=== PATIENT | male | born 1985 | race American Indian/Alaskan Native ===

== ENCOUNTER 2017-04-20 21:55 | Emergency (ER) | payer OTHER ==
[2017-04-21 00:56] LABS: Basophils % (Auto) 0.6 % (0.0-1.8); Eosinophils # (Auto) 0.1 K/mm3 (0.0-0.4); Eosinophils % (Auto) 2.5 % (0.0-4.3); Hematocrit 40.5 % (35.5-45.6); Hemoglobin 13.9 gm/dl (11.8-15.2); Lymphocytes # (Auto) 0.9 K/mm3 (1.2-5.4); Lymphocytes % (Auto) 15.7 % (13.4-35.0); Mean Corpuscular HGB Conc 34 % (32-34); Mean Corpuscular Hemoglobin 30 pg (28-32); Mean Corpuscular Volume 87 fl (84-94); Monocytes # (Auto) 0.5 K/mm3 (0.0-0.8); Monocytes % (Auto) 8.1 % (0.0-7.3); Platelet Count 197 K/mm3 (140-440); Red Blood Count 4.63 M/mm3 (3.65-5.03); Red Cell Distribution Width 12.9 % (13.2-15.2)
[2017-04-21 01:12] LABS: BUN/Creatinine Ratio 9; Blood Urea Nitrogen 9 mg/dL (9-20); Calcium 8.6 mg/dL (8.4-10.2); Hemolysis Index 7
[2017-04-21] MEDS ORDERED: K-DUR PO ONE (07:31)
[2017-04-21 07:45] VITALS: BP 155/81
[2017-04-21] MEDS ORDERED: PERCOCET 5/325 PO ONE (07:46)
[2017-04-21] MEDS ORDERED: KEPPRA 1,000 MG/NS 0.75% 100ML 1,000 MG/100 ML BAG IV ONE (07:46)
--- NOTE | 2017-04-21 07:48 | Emergency Department Report ---
HPI - General Chief Complaint: Seizure Time Seen by Provider: 04/21/17 07:28 - HPI HPI: 31-year-old [place] male presents to the emergency department with complaint of seizures and been going on since last , 6 days ago. He does have a seizure history for which he is usually on Vimpat and aptium, but he ran out about 2 weeks ago. He recently moved here from [facility] and therefore does not have any primary care physician or neurologist. He had one seizure per day starting last except for on Wednesday he says that he had before. He has had a persistent headache since the seizures began. He denies any alcohol, tobacco or illicit drug use or abuse. He denies any vision change, slurred speech, chest pain, fever. He also has a history of hypertension that is usually controlled with meds. No obvious aggravating or alleviating factors. ED Past Medical Hx - Past Medical History Hx Hypertension: Yes (Controlled with meds) Hx Seizures: Yes (Out of Meds) - Surgical History Past Surgical History?: Yes Additional Surgical History: Gallbladder surgery, Rectal ulcer & tear corrective surgery - Social History Smoking Status: Never Smoker Substance Use Type: None - Medications Home Medications: Home Medications Medication Instructions Recorded Confirmed Last Taken Type Eslicarbazepine Acetate [Aptiom] 400 mg PO QDAY #60 tablet 04/21/17 Unknown Rx Lacosamide [Vimpat] 100 mg PO Q12HR #60 tablet 04/21/17 Unknown Rx ED Review of Systems ROS: Stated complaint: SEIZURE Other details as noted in HPI Comment: All other systems reviewed and negative Constitutional: denies: chills, fever Eyes: denies: eye pain, eye discharge, vision change ENT: denies: ear pain, throat pain Respiratory: denies: cough, shortness of breath, wheezing Cardiovascular: denies: chest pain, palpitations Gastrointestinal: denies: abdominal pain, nausea, diarrhea Genitourinary: denies: urgency, dysuria Musculoskeletal: denies: back pain, joint swelling, arthralgia Skin: denies: rash, lesions Neurological: headache, other (seizures) Physical Exam - Physical Exam Vital Signs: Vital Signs 04/20/17 04/21/17 22:37 07:44 Temperature 98.2 F Pulse Rate 86 84 Respiratory 14 16 Rate Blood Pressure 163/91 155/81 [Right] O2 Sat by Pulse 100 95 Oximetry Physical Exam: GENERAL: The patient is well-developed well-nourished. HENT: Normocephalic. Atraumatic. Patient has moist mucous membranes. EYES: Extraocular motions are intact. Pupils equal reactive to light bilaterally. No nystagmus. NECK: Supple. Trachea is midline. CHEST/LUNGS: Clear to auscultation. There is no respiratory distress noted. HEART/CARDIOVASCULAR: Regular. There is no tachycardia. There is no murmur. ABDOMEN: Abdomen is soft, nontender. Patient has normal bowel sounds. There is no abdominal distention. SKIN: Skin is warm and dry. NEURO: The patient is awake, alert, and oriented. The patient is cooperative. The patient has no focal neurologic deficits. The patient has normal speech. Cranial nerves II through XII grossly intact. MUSCULOSKELETAL: There is no tenderness or deformity. There is no limitation range of motion. There is no evidence of acute injury. ED Course Vital Signs 04/20/17 04/21/17 22:37 07:44 Temperature 98.2 F Pulse Rate 86 84 Respiratory 14 16 Rate Blood Pressure 163/91 155/81 [Right] O2 Sat by Pulse 100 95 Oximetry ED Medical Decision Making - Lab Data Result diagrams: 04/21/17 00:20 04/21/17 00:20 - Radiology Data Radiology results: report reviewed CT HEAD WITHOUT CONTRAST: HISTORY: Headache, recurrent seizures. TECHNIQUE: Sequential 2.5mm CT images. COMPARISON: none. FINDINGS: Cerebral Parenchyma: Within normal limits. Cerebellum: Slightly limited by motion artifact and beam hardening artifact. No abnormality is detected. Brainstem: Within normal limits. Ventricles: Normal. Sella: Normal. Extra-axial spaces: Normal. Basal Cisterns: Normal. Intracranial Hemorrhage: None. Midline Shift: None. Calvarium: Normal. Sinuses: 1.3 cm polyp in the anterior right maxillary sinus is partially imaged. The remaining sinuses and mastoid air cells are well-aerated. Mastoid Air Cells: Normal. Visualized Orbits: Normal. IMPRESSION: Cranial CT scan within normal limits. Incidental 1.3 cm right maxillary sinus polyp. Transcribed By: TTR Dictated By: OSVALDO SAAVEDRA JR, MD Electronically Authenticated By: OSVALDO SAAVEDRA JR, MD Signed Date/Time: 04/21/17 0801 - Medical Decision Making This patient came because of recurrent seizures but also it appears to be secondary to medication noncompliance. Apparently the patient had some type of free or cheap antiepileptic medication program through his neurologist in [facility] but does not have that same availability here. Since he's been in the emergency Department there has been no focal, motor or sensory deficits, his cranial nerves have been intact and there has been no further seizure-like activity. The patient has been here for over 12 hours. He was loaded with some Keppra and Vimpat. CT of the head did not show any bleed, shift, mass or any acute process. Labs were mostly unremarkable as well and certainly did not show any etiology of his symptoms. Vital signs stable throughout his course. He appears safe for discharge home at this time. He has been given a refill of his antiepileptic medications and a referral for neurology. He has been encouraged to return to the emergency Department with any worsening of his symptoms any acute distress. - Differential Diagnosis epilepsy, medication noncompliance, hypertensive urgency, hypoglycemia Critical Care Time: No Critical care attestation.: If time is entered above; I have spent that time in minutes in the direct care of this critically ill patient, excluding procedure time. ED Disposition Clinical Impression: Seizures, Noncompliance with medication regimen Hypertension Qualifiers: Hypertension type: essential hypertension Qualified Code(s): I10 - Essential ( primary) hypertension Disposition: DC- TO HOME OR SELFCARE Is pt being admited?: No Condition: Stable Instructions: Epilepsy (ED), Hypertension (ED) Additional Instructions: I have refilled your seizure medications. I have given him use some local primary care clinics and I have also given you a referral for a local neurologist, Dr. Minor. Return to the emergency Department with any worsening of your symptoms or any acute distress. Please make sure to see a neurologist so that they can titrate your medications. Prescriptions: Eslicarbazepine Acetate [Aptiom] 400 mg PO QDAY #60 tablet Lacosamide [Vimpat] 100 mg PO Q12HR #60 tablet Referrals: WARREN MINOR MD [Staff Physician] - 3-5 Days [facility] [Outside] - 3-5 Days [facility] [Outside] - 3-5 Days Forms: Work/School Release Form(ED) Time of Disposition: 10:40
[2017-04-21] MEDS ORDERED: VIMPAT 200 MG in NACL 0.9% 100 ML IV ONE (08:00)
--- NOTE | 2017-04-21 08:07 | Cat Scan Report ---
CT HEAD WITHOUT CONTRAST: HISTORY: Headache, recurrent seizures. TECHNIQUE: Sequential 2.5mm CT images. COMPARISON: none. FINDINGS: Cerebral Parenchyma: Within normal limits. Cerebellum: Slightly limited by motion artifact and beam hardening artifact. No abnormality is detected. Brainstem: Within normal limits. Ventricles: Normal. Sella: Normal. Extra-axial spaces: Normal. Basal Cisterns: Normal. Intracranial Hemorrhage: None. Midline Shift: None. Calvarium: Normal. Sinuses: 1.3 cm polyp in the anterior right maxillary sinus is partially imaged. The remaining sinuses and mastoid air cells are well-aerated. Mastoid Air Cells: Normal. Visualized Orbits: Normal. IMPRESSION: Cranial CT scan within normal limits. Incidental 1.3 cm right maxillary sinus polyp.
== END 2017-04-21 10:48 | disposition home or self-care (01) ==
LOC: ED 21:55
DX: R56.9 Unspecified convulsions (principal); I10 Essential (primary) hypertension
CPT/HCPCS: 36415; 70450; 80048; 82550; 82962; 83735; 84443; 85025; 96365; 96367; 99284; C9254; J1953

== ENCOUNTER 2017-09-01 21:56 | Emergency (ER) | payer OTHER ==
--- NOTE | 2017-09-02 01:17 | XRay Report ---
FINAL REPORT EXAM: XR SHOULDER 2+V LT HISTORY: pain L shoulder s/p GLF TECHNIQUE: AP and lateral views of the left shoulder were submitted. FINDINGS: There is no evidence of fracture or dislocation. The AC joint and glenohumeral joint appear intact. The subacromial space appears normal. The soft tissues are well maintained. IMPRESSION: Within normal limits.
[2017-09-02 02:21] LABS: Hematocrit 41.4 % (35.5-45.6); Hemoglobin 14.1 gm/dl (11.8-15.2); Mean Corpuscular HGB Conc 34 % (32-34); Mean Corpuscular Hemoglobin 30 pg (28-32); Mean Corpuscular Volume 87 fl (84-94); Platelet Count 187 K/mm3 (140-440); Red Blood Count 4.74 M/mm3 (3.65-5.03); Red Cell Distribution Width 13.5 % (13.2-15.2)
[2017-09-02 02:36] LABS: BUN/Creatinine Ratio 11; Blood Urea Nitrogen 10 mg/dL (9-20); Calcium 8.9 mg/dL (8.4-10.2); Hemolysis Index 4
[2017-09-02] MEDS ORDERED: TYLENOL PO ONE (07:54)
--- NOTE | 2017-09-02 07:58 | Emergency Department Report ---
ED Seizure HPI - General Chief Complaint: Seizure Stated Complaint: SEIZURE Time Seen by Provider: 09/02/17 07:54 Source: patient Mode of arrival: Ambulatory Limitations: No Limitations - History of Present Illness Initial Comments: She is a 31-year-old male that presents emergency room with seizure activity 2. Patient has a known seizure history and is noncompliant with medications due to cost. Patient states he has prescriptions but just cannot afford to get them filled. Patient states he had 2 seizures that were witnessed approximately 30 minutes apart. Patient states his first seizure since stopping his medications 5 months ago. Patient complains of a headache at an 8 out of 10 and left shoulder pain at 7 out of 10. Patient states both pains are better with rest. Patient states his shoulder hurts as he fell onto his left side during the seizure. Patient states he can move it but it hurts with range of motion. Patient states that it is worse with movement and better with rest. Patient states he never hit his head. MD Complaint: seizure -: Sudden Description of Episode: tonic-clonic movement Witnessed:: Yes Trauma: No Seizure History: known seizure disorder, history of non-compliance Place: work Possible Precipitating Event: none, other (noncompliance with medication) Associated Symptoms: denies: chest pain, confusion, cough, diaphoresis, fever/ chills, loss of appetite, malaise, rash, shortness of breath, syncope, weakness , tongue injury, shoulder dislocation, other Treatments Prior to Arrival: none - Related Data Previous Rx's Medication Instructions Recorded Last Taken Type Eslicarbazepine Acetate [Aptiom] 400 mg PO QDAY #60 tablet 04/21/17 Unknown Rx Lacosamide [Vimpat] 100 mg PO Q12HR #60 tablet 04/21/17 Unknown Rx HYDROcodone/APAP 5-325 [Kel[place] 1 each PO Q4HR PRN #15 tablet 09/02/17 Unknown Rx 5/325] Allergies Allergy/AdvReac Type Severity Reaction Status Date / Time No Known Allergies Allergy Verified 04/20/17 22:38 ED Review of Systems ROS: Stated complaint: SEIZURE Other details as noted in HPI Constitutional: denies: chills, fever Eyes: denies: eye pain, eye discharge, vision change ENT: denies: ear pain, throat pain Respiratory: denies: cough, shortness of breath, wheezing Cardiovascular: denies: chest pain, palpitations Endocrine: no symptoms reported Gastrointestinal: denies: abdominal pain, nausea, diarrhea Genitourinary: denies: urgency, dysuria Musculoskeletal: denies: back pain, joint swelling, arthralgia Skin: denies: rash, lesions Neurological: headache. denies: weakness, paresthesias Psychiatric: denies: anxiety, depression Hematological/Lymphatic: denies: easy bleeding, easy bruising ED Past Medical Hx - Past Medical History Previous Medical History?: Yes Hx Hypertension: Yes (Controlled with meds) Hx Seizures: Yes (Out of Meds) - Surgical History Past Surgical History?: Yes Additional Surgical History: Gallbladder surgery, Rectal ulcer & tear corrective surgery - Family History Family history: hypertension - Social History Smoking Status: Never Smoker Substance Use Type: None - Medications Home Medications: Home Medications Medication Instructions Recorded Confirmed Last Taken Type Eslicarbazepine Acetate [Aptiom] 400 mg PO QDAY #60 tablet 04/21/17 Unknown Rx Lacosamide [Vimpat] 100 mg PO Q12HR #60 tablet 04/21/17 Unknown Rx HYDROcodone/APAP 5-325 [Kelso 1 each PO Q4HR PRN #15 tablet 09/02/17 Unknown Rx 5/325] ED Physical Exam - General Limitations: No Limitations General appearance: alert, in no apparent distress - Head Head exam: Present: atraumatic, normocephalic - Eye Eye exam: Present: normal appearance, PERRL, EOMI Pupils: Present: normal accommodation - ENT ENT exam: Present: mucous membranes moist - Neck Neck exam: Present: normal inspection - Respiratory Respiratory exam: Present: normal lung sounds bilaterally. Absent: respiratory distress - Cardiovascular Cardiovascular Exam: Present: regular rate, normal rhythm. Absent: systolic murmur, diastolic murmur, rubs, gallop - GI/Abdominal GI/Abdominal exam: Present: soft, normal bowel sounds - Rectal Rectal exam: Present: deferred - Extremities Exam Extremities exam: Present: normal inspection, full ROM, tenderness (left shoulder tenderness to palpation) - Back Exam Back exam: Present: normal inspection, full ROM - Neurological Exam Neurological exam: Present: alert, oriented X3 - Psychiatric Psychiatric exam: Present: normal affect, normal mood - Skin Skin exam: Present: warm, dry, intact, normal color. Absent: rash ED Course Vital Signs 09/02/17 09/02/17 09/02/17 00:14 04:48 06:46 Temperature 98.1 F 98.3 F 97.8 F Pulse Rate 93 H 85 81 Respiratory 18 20 18 Rate Blood Pressure 172/97 167/107 Blood Pressure 170/104 [Left] O2 Sat by Pulse 95 97 97 Oximetry 09/02/17 09/02/17 07:39 10:50 Temperature 97.5 F L Pulse Rate 80 83 Respiratory 15 25 H Rate Blood Pressure Blood Pressure 175/111 158/92 [Left] O2 Sat by Pulse 100 100 Oximetry - Reevaluation(s) Reevaluation #1: All results discussed with patient. Patient is stable for discharge. Patient states ER he has prescriptions for his medications however he has an appointment for next week with his neurologist in order to get those medications changed to something a little bit more affordable. Patient instructed to return to ER if condition worsens. pt given all discharge instructions. 09/02/17 10:09 ED Medical Decision Making - Lab Data Result diagrams: 09/02/17 01:43 09/02/17 01:43 - Radiology Data Radiology results: report reviewed Normal limits shoulder x-ray. CT head negative - Medical Decision Making Patient is a 31-year-old with a known seizure history and noncompliance. Patient encouraged to restart seizure medication and follow-up with neurologist for further evaluation treatment and management of seizure medications. Patient is stable for discharge at this time. - Differential Diagnosis SZ, noncompliance. Headache. Shoulder pain. Shoulder contusion Critical care attestation.: If time is entered above; I have spent that time in minutes in the direct care of this critically ill patient, excluding procedure time. ED Disposition Clinical Impression: Headache, Shoulder pain, Seizure, Non-compliance, Shoulder contusion Disposition: -01 TO HOME OR SELFCARE Is pt being admited?: No Does the pt Need Aspirin: No Condition: Stable Instructions: Epilepsy (ED) Additional Instructions: Patient to follow up with primary care in 3-5 days. Patient to follow-up with neurologist in 2-4 days. Patient to return to ER if condition worsens. Patient to rest. Patient to not drive. Patient to take meds as directed. Patient to restart all seizure medications. Prescriptions: HYDROcodone/APAP 5-325 [Kelso 5/325] 1 each PO Q4HR PRN #15 tablet PRN Reason: Pain Referrals: PRIMARY CARE, [Primary Care Provider] - 3-5 Days Forms: Work/School Release Form Time of Disposition: 10:08
--- NOTE | 2017-09-02 08:37 | Cat Scan Report ---
CT HEAD WITHOUT CONTRAST: HISTORY: Seizure, headache. TECHNIQUE: Sequential 2.5mm CT images. COMPARISON: 04/21/17. FINDINGS: Cerebral Parenchyma: Within normal limits. Cerebellum: Within normal limits. Brainstem: Within normal limits. Ventricles: Normal. Sella: Normal. Extra-axial spaces: Normal. Basal Cisterns: Normal. Intracranial Hemorrhage: None. Midline Shift: None. Calvarium: Normal. Sinuses: 1 cm polyp versus mucus retention cyst in the anterior right maxillary sinus is unchanged. The remaining paranasal sinuses are adequately aerated. Mastoid Air Cells: Normal. Visualized Orbits: Normal. IMPRESSION: Cranial CT scan within normal limits. No change since the previous examination.
[2017-09-02 10:52] VITALS: BP 158/92
== END 2017-09-02 11:24 | disposition home or self-care (01) ==
LOC: ED 21:56
DX: S40.012A Contusion of left shoulder, initial encounter (principal); G40.909 Epilepsy, unspecified, not intractable, without status epilepticus; I10 Essential (primary) hypertension; X58.XXXA Exposure to other specified factors, initial encounter; Y93.89 Activity, other specified; Y92.89 Other specified places as the place of occurrence of the external cause; Y99.8 Other external cause status
CPT/HCPCS: 36415; 70450; 80048; 85027

== ENCOUNTER 2018-07-28 07:54 | Emergency (ER) | payer OTHER ==
[2018-07-28 08:00] VITALS: BP 188/118
[2018-07-28] MEDS ORDERED: ATIVAN IV ONE (08:21)
[2018-07-28] MEDS ORDERED: VIMPAT PO ONE (08:21)
[2018-07-28] MEDS ORDERED: FIORICET PO ONE (08:21)
[2018-07-28 08:30] LABS: Hematocrit 43.8 % (35.5-45.6); Hemoglobin 14.9 gm/dl (11.8-15.2); Mean Corpuscular HGB Conc 34 % (32-34); Mean Corpuscular Volume 87 fl (84-94); Platelet Count 185 K/mm3 (140-440); Red Blood Count 5.05 M/mm3 (3.65-5.03); Red Cell Distribution Width 14.3 % (13.2-15.2)
--- NOTE | 2018-07-28 08:38 | Emergency Department Report ---
HPI - General Chief Complaint: Seizure Time Seen by Provider: 07/28/18 08:08 - HPI HPI: Room 1 The patient is a 32-year-old male presents with a chief complaint of seizures and headache. The patient states she has a history of seizures but has been out of his medication "for a while." The patient states he began having a migraine headache 3 days ago and increased yesterday. Patient says he had a seizure yesterday and seizure this morning. The patient states he fell this morning during his seizure prompting him to come to the ED to be evaluated. Patient states his headache has improved somewhat and gives it a score of 5/10 Location: [facility], see above Duration: [See above] Quality: Headache Severity:5/10 Modifying factors: [see above] Context: [see above] Mode of transportation: [not driving] ED Past Medical Hx - Past Medical History Hx Hypertension: Yes (Controlled with meds) Hx Seizures: Yes (Out of Meds) - Surgical History Past Surgical History?: No Additional Surgical History: Gallbladder surgery, Rectal ulcer & tear corrective surgery - Family History Family history: no significant - Social History Smoking Status: Never Smoker Substance Use Type: None - Medications Home Medications: Home Medications Medication Instructions Recorded Confirmed Last Taken Type HYDROcodone/APAP 5-325 [Galt 1 each PO Q4HR PRN #15 tablet 09/02/17 Unknown Rx 5/325] Butalb/Acetamin/Caff 50-325-40 2 tab PO Q8HR PRN #20 tablet 07/28/18 Unknown Rx [Fioricet] Eslicarbazepine Acetate [Aptiom] 400 mg PO QDAY #60 tablet 07/28/18 Unknown Rx Lacosamide [Vimpat] 100 mg PO Q12HR #60 tablet 07/28/18 Unknown Rx ED Review of Systems ROS: Stated complaint: SEIZURE/HEADACHE Other details as noted in HPI Constitutional: no symptoms reported Eyes: denies: eye pain ENT: denies: throat pain Respiratory: no symptoms reported Cardiovascular: denies: chest pain Endocrine: no symptoms reported Gastrointestinal: denies: abdominal pain Genitourinary: denies: dysuria Musculoskeletal: denies: back pain Neurological: headache Physical Exam - Physical Exam Vital Signs: Vital Signs 07/28/18 07:59 Temperature 97.9 F Pulse Rate 100 H Respiratory 18 Rate Blood Pressure 188/118 O2 Sat by Pulse 98 Oximetry Physical Exam: GENERAL: The patient is well-developed well-nourished male sitting on stretcher not appearing to be in acute distress. [] HEENT: Normocephalic. Atraumatic. Extraocular motions are intact. Patient has moist mucous membranes. NECK: Supple. Trachea midline CHEST/LUNGS: Clear to auscultation. There is no respiratory distress noted. HEART/CARDIOVASCULAR: Regular. There is no tachycardia. There is no gallop rub or murmur. ABDOMEN: Abdomen is soft, nontender. Patient has normal bowel sounds. There is no abdominal distention. SKIN: There is no rash. There is no edema. There is no diaphoresis. NEURO: The patient is awake, alert, and oriented. The patient is cooperative. The patient has no focal neurologic deficits. The patient has normal speech. Cranial nerves II through XII grossly intact MUSCULOSKELETAL: There is no evidence of acute injury. ED Course Vital Signs 07/28/18 07:59 Temperature 97.9 F Pulse Rate 100 H Respiratory 18 Rate Blood Pressure 188/118 O2 Sat by Pulse 98 Oximetry ED Medical Decision Making - Lab Data Result diagrams: 07/28/18 08:16 07/28/18 08:16 Laboratory Tests 07/28/18 07/28/18 08:16 08:16 WBC 5.3 RBC 5.05 H Hgb 14.9 Hct 43.8 MCV 87 MCH 30 MCHC 34 RDW 14.3 Plt Count 185 Sodium 137 Potassium 4.0 Chloride 100.5 Carbon Dioxide 23 Anion Gap 18 BUN 12 Creatinine 1.0 Estimated GFR > 60 BUN/Creatinine Ratio 12 Glucose 129 H Calcium 8.8 Magnesium 2.10 - Radiology Data Radiology results: report reviewed (CT head), image reviewed (CT head) [facility] [address] [place] [address] Cat Scan Report Signed Patient: TAMIR FALK MR# : [id number] : 1985 Acct:[id number] Age/Sex: 32 / M ADM Date: 07/28/18 Loc: ED Attending Dr: Ordering Physician: MICHELET RYAN MD Date of Service: 07/28/18 Procedure(s): CT head/brain wo con Accession Number(s): [id number] cc: MICHELET RYAN MD CT HEAD WITHOUT CONTRAST: HISTORY: Headache, seizure. TECHNIQUE: Sequential 2.5mm CT images. COMPARISON: 09/02/17. FINDINGS: Cerebral Parenchyma: Within normal limits. Cerebellum: Within normal limits. Brainstem: Within normal limits. Ventricles: Normal. Sella: Normal. Extra-axial spaces: Normal. Basal Cisterns: Normal. Intracranial Hemorrhage: None. Midline Shift: None. Calvarium: Normal. Sinuses: There are a few small mucus retention cysts in the inferior maxillary sinuses. The remaining sinuses are clear. Mastoid Air Cells: Normal. Visualized Orbits: Normal. IMPRESSION: Cranial CT scan within normal limits. Transcribed By: TTR Dictated By: OSVALDO SAAVEDRA JR, MD Electronically Authenticated By: OSVALDO SAAVEDRA JR, MD Signed Date/Time: 07/28/18853 DD/ 3 TD/TT: 07/28/18853 - Differential Diagnosis seizures, migraines, ICH, cerebral contusion Critical care attestation.: If time is entered above; I have spent that time in minutes in the direct care of this critically ill patient, excluding procedure time. ED Disposition Clinical Impression: Seizure Disposition: DC-01 TO HOME OR SELFCARE Is pt being admited?: No Does the pt Need Aspirin: No Condition: Stable Instructions: Epilepsy (ED) Additional Instructions: Return to the emergency department immediately should you develop worsening symptoms, fever, inability to tolerate food or liquid or any other concerns. Prescriptions: Eslicarbazepine Acetate [Aptiom] 400 mg PO QDAY #60 tablet Butalb/Acetamin/Caff 50-325-40 [Fioricet] 2 tab PO Q8HR PRN #20 tablet PRN Reason: Headache Lacosamide [Vimpat] 100 mg PO Q12HR #60 tablet Referrals: PRIMARY MD CHITRA [Primary Care Provider] - 3-5 Days WARREN MINOR MD [Staff Physician] - 3-5 Days Time of Disposition: 09:11
[2018-07-28 08:49] LABS: Blood Urea Nitrogen 12 mg/dL (9-20)
[2018-07-28 08:50] LABS: BUN/Creatinine Ratio 12; Calcium 8.8 mg/dL (8.4-10.2); Hemolysis Index 25
--- NOTE | 2018-07-28 08:59 | Cat Scan Report ---
CT HEAD WITHOUT CONTRAST: HISTORY: Headache, seizure. TECHNIQUE: Sequential 2.5mm CT images. COMPARISON: 09/02/17. FINDINGS: Cerebral Parenchyma: Within normal limits. Cerebellum: Within normal limits. Brainstem: Within normal limits. Ventricles: Normal. Sella: Normal. Extra-axial spaces: Normal. Basal Cisterns: Normal. Intracranial Hemorrhage: None. Midline Shift: None. Calvarium: Normal. Sinuses: There are a few small mucus retention cysts in the inferior maxillary sinuses. The remaining sinuses are clear. Mastoid Air Cells: Normal. Visualized Orbits: Normal. IMPRESSION: Cranial CT scan within normal limits.
== END 2018-07-28 09:37 | disposition home or self-care (01) ==
LOC: ED 07:54
DX: R56.9 Unspecified convulsions (principal); G43.909 Migraine, unspecified, not intractable, without status migrainosus; I10 Essential (primary) hypertension
CPT/HCPCS: 36415; 70450; 80048; 83735; 85027; 96374; 99284; J2060

== ENCOUNTER 2021-02-24 09:10 | Emergency (ER) | payer OTHER ==
[2021-02-24 09:22] VITALS: BP 175/104
[2021-02-24] MEDS ORDERED: MORPHINE 4 MG/1 ML INJ IV ONE ×2 (10:48→13:55)
[2021-02-24] MEDS ORDERED: ONDANSETRON 4 MG/2 ML INJ IV ONE ×2 (10:48→13:55)
--- NOTE | 2021-02-24 11:45 | Emergency Department Report ---
ED Abdominal Pain HPI - General Chief Complaint: Abdominal Pain Stated Complaint: PAIN IN MY LOWER R SIDE Time Seen by Provider: 02/24/21 10:47 Source: patient Mode of arrival: Ambulatory Limitations: No Limitations - History of Present Illness Initial Comments: The patient was evaluated in the emergency department for symptoms described in the history of present illness. He/she was evaluated in the context of the global COVID-19 pandemic, which necessitated consideration that the patient might be at risk for infection with the virus that causes COVID-19. Institutional protocols and algorithms that pertain to the evaluation of patients at risk for COVID-19 are in a state of rapid change based on information released by regulatory bodies including the CDC and federal and state organizations. These policies and algorithms were followed during the patient's care in the emergency department. Please note that these policies, procedures and recommendations changed on a rapid basis. 35-year-old morbid obese -Citizen Of [place] male with a past medical history of epilepsy and hypertension presents to the emergency room for right lower quadrant abdominal pain. Patient states this started on and has progressively gotten worse. Patient states he had a physical done on when his doctor checked his abdomen it was tender to his right side. Patient states since then he has had some nausea vomiting pain with movement low-grade temperature with a T-max of 100 at home. Patient states he is compliant with his medications. He states that the pain is 8 out of 10. Has no known drug allergies. Currently takes Depakote hydrochlorothiazide amlodipine and clonidine. MD Complaint: abdominal pain Onset/Timin -: days(s) Location: RLQ Radiation: none Migration to: no migration Severity scale (0 -10): 8 Quality: stabbing, sharp Consistency: constant Improves With: nothing Worsens With: movement Associated Symptoms: nausea, vomiting, fever - Related Data Previous Rx's Medication Instructions Recorded Last Taken Type HYDROcodone/APAP 5-325 [Kinde 1 each PO Q4HR PRN #15 tablet 09/02/17 Unknown Rx 5/325] Butalb/Acetamin/Caff 50-325-40 2 tab PO Q8HR PRN #20 tablet 07/28/18 Unknown Rx [Fioricet] Eslicarbazepine Acetate [Aptiom] 400 mg PO QDAY #60 tablet 07/28/18 Unknown Rx Lacosamide [Vimpat] 100 mg PO Q12HR #60 tablet 07/28/18 Unknown Rx Allergies Allergy/AdvReac Type Severity Reaction Status Date / Time No Known Allergies Allergy Verified 02/24/21 09:22 ED Review of Systems ROS: Stated complaint: PAIN IN MY LOWER R SIDE Other details as noted in HPI Comment: All other systems reviewed and negative ED Past Medical Hx - Past Medical History Hx Hypertension: Yes (Controlled with meds) Hx Seizures: Yes (Out of Meds) - Surgical History Additional Surgical History: Gallbladder surgery, Rectal ulcer & tear corrective surgery - Social History Smoking Status: Never Smoker Substance Use Type: None - Medications Home Medications: Home Medications Medication Instructions Recorded Confirmed Last Taken Type HYDROcodone/APAP 5-325 [Kinde 1 each PO Q4HR PRN #15 tablet 09/02/17 Unknown Rx 5/325] Butalb/Acetamin/Caff 50-325-40 2 tab PO Q8HR PRN #20 tablet 07/28/18 Unknown Rx [Fioricet] Eslicarbazepine Acetate [Aptiom] 400 mg PO QDAY #60 tablet 07/28/18 Unknown Rx Lacosamide [Vimpat] 100 mg PO Q12HR #60 tablet 07/28/18 Unknown Rx ED Physical Exam - General Limitations: No Limitations General appearance: alert, in no apparent distress - Head Head exam: Present: atraumatic, normocephalic - Eye Eye exam: Present: normal appearance - ENT ENT exam: Present: normal external ear exam - Neck Neck exam: Present: normal inspection, full ROM. Absent: tenderness - Respiratory Respiratory exam: Present: normal lung sounds bilaterally - Cardiovascular Cardiovascular Exam: Present: tachycardia - GI/Abdominal GI/Abdominal exam: Present: soft, tenderness, guarding. Absent: distended - Extremities Exam Extremities exam: Present: normal inspection, full ROM - Back Exam Back exam: Present: normal inspection - Neurological Exam Neurological exam: Present: alert, oriented X3, normal gait - Psychiatric Psychiatric exam: Present: normal affect, normal mood - Skin Skin exam: Present: warm, dry, intact, normal color. Absent: rash ED Course Vital Signs 02/24/21 09:20 Temperature 98.9 F Pulse Rate 94 H Respiratory 18 Rate Blood Pressure 175/104 [Left] O2 Sat by Pulse 100 Oximetry ED Medical Decision Making - Lab Data Result diagrams: 02/24/21 11:20 02/24/21 11:20 - Radiology Data Radiology results: report reviewed [facility] [address] [place] [address] Cat Scan Report Signed Patient: TAMIR FALK MR# : [id number] : 1985 Acct:[id number] Age/Sex: 35 / M ADM Date: 02/24/21 Loc: ED Attending Dr: Ordering Physician: VERONICA LOPEZ Date of Service: 02/24/21 Procedure(s): CT abdomen pelvis w con Accession Number(s): [id number] cc: VERONICA LOPEZ CT abdomen pelvis w con INDICATION: Right lower quadrant tenderness and pain OMNI 300 100 ML. TECHNIQUE: All CT scans at this location are performed using CT dose reduction for ALARA by means of automated exposure control. COMPARISON: None available. FINDINGS: The included lung bases are clear. The gallbladder surgically absent. The liver is enlarged and demonstrates diffuse hepatic steatosis. The adrenal glands, kidneys, pancreas, and spleen are all normal. The appendix is normal. There are no acute bowel abnormalities. Visualized bones demonstrate no aggressive appearing bone lesions or acute abnormalities. There is no abdominal or pelvic adenopathy. IMPRESSION: 1. No acute findings. 2. Hepatomegaly with hepatic steatosis. Signer Name: Cam Rojas MD Signed: 02/24/2021 1:44 PM Workstation Name: [id number] Transcribed By: BAYLEE Dictated By: Cam Rojas MD Electronically Authenticated By: Cam Rojas MD Signed Date/Time: 02/24/21 134 DD/ 134 TD/TT: - Medical Decision Making 35-year-old morbid obese -Citizen Of [place] male with a past medical history of epilepsy and hypertension presents to the emergency room for right lower quadrant abdominal pain. Patient states this started on and has progressively gotten worse. Patient states he had a physical done on when his doctor checked his abdomen it was tender to his right side. Patient states since then he has had some nausea vomiting pain with movement low-grade temperature with a T-max of 100 at home. Patient states he is compliant with his medications. He states that the pain is 8 out of 10. Has no known drug allergies. Currently takes Depakote hydrochlorothiazide amlodipine and clonidine. CBC CMP CT abdomen pelvis INT normal saline Zofran and morphine Critical care attestation.: If time is entered above; I have spent that time in minutes in the direct care of this critically ill patient, excluding procedure time. ED Disposition Clinical Impression: Acute abdominal pain in right lower quadrant Disposition: HOME / SELF CARE / HOMELESS Is pt being admited?: No Does the pt Need Aspirin: No Condition: Stable Instructions: Abdominal Pain, Adult, [id number], Pain Without a Known Cause Additional Instructions: Labs are stable and nonactionable. CT scan shows no acute abnormalities. I recommend to follow back up with your primary care provider. You can take Tylenol or ibuprofen as needed for pain. Referrals: PRIMARY CARE,MD [Primary Care Provider] - 3-5 Days [facility] [Provider Group] - 3-5 Days Forms: Work/School Release Form(ED) Time of Disposition: 13:56
[2021-02-24] MEDS: SODIUM CHLORIDE 0.9% 1000 ML 1,000 ML IV ONE ×2 (11:47→14:00)
[2021-02-24 12:07] LABS: Basophils % (Auto) 0.4 % (0.0-1.8); Eosinophils # (Auto) 0.1 K/mm3 (0.0-0.4); Hematocrit 42.9 % (35.5-45.6); Hemoglobin 13.9 gm/dl (11.8-15.2); Lymphocytes # (Auto) 0.7 K/mm3 (1.2-5.4); Lymphocytes % (Auto) 13.4 % (13.4-35.0); Mean Corpuscular HGB Conc 32 % (32-34); Mean Corpuscular Volume 87 fl (84-94); Monocytes # (Auto) 0.4 K/mm3 (0.0-0.8); Monocytes % (Auto) 8.6 % (0.0-7.3); Platelet Count 205 K/mm3 (140-440); Red Blood Count 4.91 M/mm3 (3.65-5.03); Red Cell Distribution Width 13.8 % (13.2-15.2)
[2021-02-24 12:31] LABS: Alanine Aminotransferase 88 units/L (7-56); Albumin 4.7 g/dL (3.9-5); BUN/Creatinine Ratio 16; Blood Urea Nitrogen 14 mg/dL (9-20); Calcium 9.3 mg/dL (8.4-10.2); Hemolysis Index 13
--- NOTE | 2021-02-24 13:49 | Cat Scan Report ---
CT abdomen pelvis w con INDICATION: Right lower quadrant tenderness and pain OMNI 300 100 ML. TECHNIQUE: All CT scans at this location are performed using CT dose reduction for ALARA by means of automated e xposure control. COMPARISON: None available. FINDINGS: The included lung bases are clear. The gallbladder surgically absent. The liver is enlarged and demonstrates diffuse hepatic steatosis. The adrenal glands, kidneys, pancreas, and spleen are all normal. The appendix is normal. There are no acute bowel abnormalities. Visualized bones demonstrate no aggressive appearing bone lesions or acute abnormalities. There is no abdominal or pelvic adenopathy. IMPRESSION: 1. No acute findings. 2. Hepatomegaly with hepatic steatosis. Signer Name: Cam Rojas MD Signed: 02/24/2021 1:44 PM Workstation Name: [id number]
== END 2021-02-24 14:43 | disposition home or self-care (01) ==
LOC: ED 09:10
DX: R10.31 Right lower quadrant pain (principal); R56.9 Unspecified convulsions; I10 Essential (primary) hypertension; Z98.890 Other specified postprocedural states; Z79.899 Other long term (current) drug therapy
CPT/HCPCS: 36415; 74177; 80053; 83690; 85025; 96374; 96375; 96376; 99284; J2270; J2405; J7030; Q9967; Q0162

== ENCOUNTER 2021-02-26 09:44 | Emergency (ER) | payer OTHER ==
[2021-02-26] MEDS ORDERED: fentaNYL 100 MCG/2 ML INJ IV ONE (11:21)
[2021-02-26] MEDS ORDERED: ONDANSETRON 4 MG/2 ML INJ IV ONE (11:21)
[2021-02-26] MEDS ORDERED: KETOROLAC 30 MG/1 ML INJ IV ONE (11:22)
--- NOTE | 2021-02-26 11:27 | Emergency Department Report ---
HPI - General Chief Complaint: Abdominal Pain Time Seen by Provider: 02/26/21 10:46 - HPI HPI: Room 5 The patient is a 35-year-old male present with chief complaint of right-sided abdominal pain. Patient states he developed right-sided pain 5 days ago and states the pain was intermittent. Patient is to nausea and vomiting as well as a fever. Patient states he had a CT scan performed for his primary physician 6 days ago and was told he had a kidney stone. The patient came to this emergency department 02/24/[address] scan performed which was essentially negative except for hepatic steatosis. Patient currently gets his pain score of 9/10. The patient states he is not driving ED Past Medical Hx - Past Medical History Hx Hypertension: Yes (Controlled with meds) Hx Seizures: Yes (Out of Meds) - Surgical History Additional Surgical History: Gallbladder surgery, Rectal ulcer & tear corrective surgery - Family History Family history: no significant - Social History Smoking Status: Never Smoker Substance Use Type: None (Denies illicit drug use), Alcohol (Rarely) - Medications Home Medications: Home Medications Medication Instructions Recorded Confirmed Last Taken Type HYDROcodone/APAP 5-325 [Paxinos 1 each PO Q4HR PRN #15 tablet 09/02/17 Unknown Rx 5/325] Butalb/Acetamin/Caff 50-325-40 2 tab PO Q8HR PRN #20 tablet 07/28/18 Unknown Rx [Fioricet] Eslicarbazepine Acetate [Aptiom] 400 mg PO QDAY #60 tablet 07/28/18 Unknown Rx Lacosamide [Vimpat] 100 mg PO Q12HR #60 tablet 07/28/18 Unknown Rx Famotidine [Pepcid] 20 mg PO BID #20 tablet 02/26/21 Unknown Rx HYDROcodone/APAP 5-325 [Paxinos 1 - 2 each PO Q6HR PRN #10 tablet 02/26/21 Unknown Rx 5/325] Promethazine [Phenergan] 25 mg PO Q6HR PRN #20 tab 02/26/21 Unknown Rx Promethazine [Phenergan] 25 mg UT Q6HR PRN #5 supp.rect 02/26/21 Unknown Rx ED Review of Systems ROS: Stated complaint: RLQ ABD PAIN Other details as noted in HPI Constitutional: fever Eyes: denies: eye pain ENT: denies: throat pain Respiratory: no symptoms reported Cardiovascular: denies: chest pain Endocrine: no symptoms reported Gastrointestinal: abdominal pain, nausea, vomiting Musculoskeletal: back pain Neurological: denies: headache Physical Exam - Physical Exam Vital Signs: Vital Signs 02/26/21 09:50 Temperature 98.2 F Pulse Rate 88 Respiratory 18 Rate Blood Pressure 202/110 [Right] O2 Sat by Pulse 97 Oximetry Physical Exam: GENERAL: The patient is well-developed well-nourished male lying on stretcher not appearing to be in acute distress. [] HEENT: Normocephalic. Atraumatic. Extraocular motions are intact. Patient has moist mucous membranes. NECK: Supple. Trachea midline CHEST/LUNGS: Clear to auscultation. There is no respiratory distress noted. HEART/CARDIOVASCULAR: Regular. There is no tachycardia. There is no gallop rub or murmur. ABDOMEN: Abdomen is soft, with mild discomfort to palpation in the right upper quadrant and right lower quadrant. Patient has normal bowel sounds. There is no abdominal distention. SKIN: There is no rash. There is no edema. There is no diaphoresis. NEURO: The patient is awake, alert, and oriented. The patient is cooperative. The patient has no focal neurologic deficits. The patient has normal speech. GCS 15 MUSCULOSKELETAL: There is bilateral CVA tenderness. There is no evidence of acute injury. ED Course Vital Signs 02/26/21 09:50 Temperature 98.2 F Pulse Rate 88 Respiratory 18 Rate Blood Pressure 202/110 [Right] O2 Sat by Pulse 97 Oximetry ED Medical Decision Making - Lab Data Result diagrams: 02/26/21 11:39 02/26/21 11:39 Laboratory Tests 02/26/21 02/26/21 02/26/21 11:39 11:39 13:47 WBC 5.3 RBC 4.64 Hgb 13.3 Hct 40.1 MCV 87 MCH 29 MCHC 33 RDW 13.6 Plt Count 184 Lymph % (Auto) 9.3 L Lassen % (Auto) 7.4 H Eos % (Auto) 1.6 Baso % (Auto) 1.6 Lymph # (Auto) 0.5 L Lassen # (Auto) 0.4 Eos # (Auto) 0.1 Baso # (Auto) 0.1 Seg Neutrophils % 80.1 H Seg Neutrophils # 4.3 Sodium 137 Potassium 4.0 Chloride 98.5 Carbon Dioxide 30 Anion Gap 13 BUN 8 L Creatinine 0.7 L Estimated GFR > 60 BUN/Creatinine Ratio 11 Glucose 152 H Calcium 8.7 Urine Color Yellow Urine Turbidity Clear Urine pH 5.0 Ur Specific Kila 1.016 Urine Protein 100 mg/dl Urine Glucose (UA) Neg Urine Ketones Neg Urine Blood Neg Urine Nitrite Neg Urine Bilirubin Neg Urine Urobilinogen 2.0 Ur Leukocyte Esterase Neg Urine WBC (Auto) 1.0 Urine RBC (Auto) 1.0 Urine Mucus Few - Differential Diagnosis Renal colic, pyelonephritis, muscle strain Critical care attestation.: If time is entered above; I have spent that time in minutes in the direct care of this critically ill patient, excluding procedure time. ED Disposition Clinical Impression: Acute abdominal pain Disposition: HOME / SELF CARE / HOMELESS Is pt being admited?: No Does the pt Need Aspirin: No Condition: Stable Additional Instructions: Return to the emergency department should you develop worsening symptoms, inability to tolerate food or liquids, high fever or any other concerns Prescriptions: HYDROcodone/APAP 5-325 [Paxinos 5/325] 1 - 2 each PO Q6HR PRN #10 tablet PRN Reason: Pain Famotidine [Pepcid] 20 mg PO BID #20 tablet Promethazine [Phenergan] 25 mg PO Q6HR PRN #20 tab PRN Reason: Nausea Promethazine [Phenergan] 25 mg UT Q6HR PRN #5 supp.rect PRN Reason: Vomiting Referrals: PRIMARY CAREMD [Primary Care Provider] - 3-5 Days LITO QURESHI MD [Staff Physician] - 3-5 Days (Dr. Qureshi is a resource management specialist. Please follow-up with him for further evaluation) Time of Disposition: 14:28
[2021-02-26 11:50] LABS: Basophils # (Auto) 0.1 K/mm3 (0.0-0.1); Basophils % (Auto) 1.6 % (0.0-1.8); Eosinophils # (Auto) 0.1 K/mm3 (0.0-0.4); Eosinophils % (Auto) 1.6 % (0.0-4.3); Hematocrit 40.1 % (35.5-45.6); Hemoglobin 13.3 gm/dl (11.8-15.2); Lymphocytes # (Auto) 0.5 K/mm3 (1.2-5.4); Lymphocytes % (Auto) 9.3 % (13.4-35.0); Mean Corpuscular HGB Conc 33 % (32-34); Mean Corpuscular Volume 87 fl (84-94); Monocytes # (Auto) 0.4 K/mm3 (0.0-0.8); Monocytes % (Auto) 7.4 % (0.0-7.3); Platelet Count 184 K/mm3 (140-440); Red Blood Count 4.64 M/mm3 (3.65-5.03); Red Cell Distribution Width 13.6 % (13.2-15.2)
[2021-02-26 12:09] LABS: Blood Urea Nitrogen 8 mg/dL (9-20); Calcium 8.7 mg/dL (8.4-10.2); Hemolysis Index 4
[2021-02-26 12:26] LABS: BUN/Creatinine Ratio 11
[2021-02-26 14:19] LABS: Bilirubin,Urine NEG (Negative); Blood,Urine NEG (Negative); Color,Urine Yellow (Yellow); Mucus,Urine FEW /HPF
[2021-02-26 15:34] VITALS: BP 141/88
--- NOTE | 2021-02-27 10:32 | Electrocardiograph Report ---
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
== END 2021-02-26 15:34 | disposition home or self-care (01) ==
LOC: ED 09:44
DX: R10.9 Unspecified abdominal pain (principal); I10 Essential (primary) hypertension; R56.9 Unspecified convulsions
CPT/HCPCS: 36415; 80048; 81001; 85025; 93005; 96374; 96375; 99284; J1885; J2405; J3010

== ENCOUNTER 2021-04-03 18:57 | Inpatient (IN) | payer SELFPAY ==
[2021-04-03] MEDS ORDERED: NITROGLYCERIN 0.4 MG TAB SUBL SL ONE (19:26)
[2021-04-03] MEDS ORDERED: dilTIAZem 25 MG/5 ML INJ IV ONE ×3 (19:26→20:54)
[2021-04-03] MEDS ORDERED: SODIUM CHLORIDE 0.9% 500 ML 500 ML IV ONE (19:26)
[2021-04-03] MEDS ORDERED: MORPHINE 4 MG/1 ML INJ IV ONE (19:27)
[2021-04-03] MEDS ORDERED: ONDANSETRON 4 MG/2 ML INJ IV ONE (19:27)
--- NOTE | 2021-04-03 19:28 | Emergency Department Report ---
<JUAN ANGEL - Last Filed: 04/03/21 20:56> ED General Adult HPI - General Chief complaint: Chest Pain Stated complaint: CHEST PAIN Time Seen by Provider: 04/03/21 19:10 Source: patient, RN notes reviewed, old records reviewed Mode of arrival: Ambulatory Limitations: No Limitations - History of Present Illness Initial comments: The patient was evaluated in the emergency department for symptoms described in the history of present illness. He/she was evaluated in the context of the global COVID-19 pandemic, which necessitated consideration that the patient might be at risk for infection with the virus that causes COVID-19. Institutional protocols and algorithms that pertain to the evaluation of patients at risk for COVID-19 are in a state of rapid change based on information released by regulatory bodies including the CDC and federal and state organizations. These policies and algorithms were followed during the patient's care in the emergency department. Please note that these policies, procedures and recommendations changed on a rapid basis. Past medical history of hypertension, obstructive sleep apnea, obesity/body mass index of 44.6 The patient is a 35-year-old gentleman, who presents to the ER today with complaint of left-sided chest pain that radiates down to his left upper extremity. He denies vomiting and diaphoresis. He has shortness of breath. He denies travel, surgery, immobilization, DVT/PE risk factors. He denies testicular pain or urinary symptoms. He also endorses simultaneous right lower quadrant pain. However, he reports that this is similar to prior episodes of right lower quadrant pain. -: Gradual, hour(s) Location: chest, abdomen Radiation: extremity Quality: aching Consistency: constant Improves with: rest Worsens with: movement - Related Data Previous Rx's Medication Instructions Recorded Last Taken Type HYDROcodone/APAP 5-325 [Shade 1 each PO Q4HR PRN #15 tablet 09/02/17 Unknown Rx 5/325] Butalb/Acetamin/Caff 50-325-40 2 tab PO Q8HR PRN #20 tablet 07/28/18 Unknown Rx [Fioricet] Eslicarbazepine Acetate [Aptiom] 400 mg PO QDAY #60 tablet 07/28/18 Unknown Rx Lacosamide [Vimpat] 100 mg PO Q12HR #60 tablet 07/28/18 Unknown Rx Famotidine [Pepcid] 20 mg PO BID #20 tablet 02/26/21 Unknown Rx HYDROcodone/APAP 5-325 [Shade 1 - 2 each PO Q6HR PRN #10 tablet 02/26/21 Unknown Rx 5/325] Promethazine [Phenergan] 25 mg PO Q6HR PRN #20 tab 02/26/21 Unknown Rx Promethazine [Phenergan] 25 mg LA Q6HR PRN #5 supp.rect 02/26/21 Unknown Rx Allergies Allergy/AdvReac Type Severity Reaction Status Date / Time No Known Allergies Allergy Verified 04/03/21 20:58 ED Review of Systems Constitutional: denies: fever Eyes: denies: vision change ENT: denies: epistaxis Respiratory: shortness of breath. denies: cough Cardiovascular: chest pain, palpitations Gastrointestinal: abdominal pain. denies: vomiting, melena, hematochezia Genitourinary: denies: dysuria, testicular pain Musculoskeletal: back pain Neurological: paresthesias Psychiatric: anxiety Hematological/Lymphatic: denies: easy bleeding ED Past Medical Hx - Past Medical History Hx Hypertension: Yes (Controlled with meds) Hx Seizures: Yes (Out of Meds) - Surgical History Additional Surgical History: Gallbladder surgery, Rectal ulcer & tear corrective surgery - Social History Smoking Status: Never Smoker Substance Use Type: None (Denies illicit drug use), Alcohol (Rarely) - Medications Home Medications: Home Medications Medication Instructions Recorded Confirmed Last Taken Type HYDROcodone/APAP 5-325 [Shade 1 each PO Q4HR PRN #15 tablet 09/02/17 Unknown Rx 5/325] Butalb/Acetamin/Caff 50-325-40 2 tab PO Q8HR PRN #20 tablet 07/28/18 Unknown Rx [Fioricet] Eslicarbazepine Acetate [Aptiom] 400 mg PO QDAY #60 tablet 07/28/18 Unknown Rx Lacosamide [Vimpat] 100 mg PO Q12HR #60 tablet 07/28/18 Unknown Rx Famotidine [Pepcid] 20 mg PO BID #20 tablet 02/26/21 Unknown Rx HYDROcodone/APAP 5-325 [Shade 1 - 2 each PO Q6HR PRN #10 tablet 02/26/21 Unknown Rx 5/325] Promethazine [Phenergan] 25 mg PO Q6HR PRN #20 tab 02/26/21 Unknown Rx Promethazine [Phenergan] 25 mg LA Q6HR PRN #5 supp.rect 02/26/21 Unknown Rx ED Physical Exam - General Limitations: No Limitations General appearance: alert, anxious, in distress, obese - Head Head exam: Present: atraumatic, normocephalic - Eye Eye exam: Present: normal appearance, EOMI. Absent: nystagmus - ENT ENT exam: Present: normal exam, normal orophraynx, mucous membranes moist, normal external ear exam - Neck Neck exam: Present: normal inspection, full ROM. Absent: tenderness, meningismus - Respiratory Respiratory exam: Present: normal lung sounds bilaterally. Absent: respiratory distress, wheezes, rales, rhonchi, stridor, decreased breath sounds - Cardiovascular Cardiovascular Exam: Present: tachycardia, irregular rhythm, normal heart sounds. Absent: systolic murmur, diastolic murmur, rubs, gallop - GI/Abdominal GI/Abdominal exam: Present: soft, tenderness, other (There is right lower quadrant tenderness to deep palpation). Absent: distended, guarding, rebound, rigid, pulsatile mass - Rectal Rectal exam: Present: deferred - Extremities Exam Extremities exam: Present: normal inspection, full ROM, other (2+ pulses noted in the bilateral upper and lower extremities. There is no palpable cord. negative Homans sign. Muscular compartments are soft. The pelvis is stable.). Absent: pedal edema, calf tenderness - Back Exam Back exam: Present: normal inspection, full ROM. Absent: tenderness, CVA tenderness (R), CVA tenderness (L), paraspinal tenderness, vertebral tenderness - Neurological Exam Neurological exam: Present: alert, oriented X3, normal gait, other (No facial droop. Tongue midline. Extraocular movements intact bilaterally. Facial se nsation intact to light touch in V1, V2, V3 distribution bilaterally. 5 and a 5 strength in 4 extremities. Sensation intact to light touch in 4 extremities.). Absent: motor sensory deficit - Psychiatric Psychiatric exam: Present: normal affect, normal mood - Skin Skin exam: Present: warm, dry, intact, normal color. Absent: rash ED Course - Reevaluation(s) Reevaluation #1: 04/03/21 20:33 Differential diagnosis, including but not limited to: A. fib with RVR, acute coronary syndrome, electrolyte derangement, thyroid derangement, pneumonia, aortic disease, renal colic, appendicitis Assessment and plan: 35-year-old gentleman, who denies DVT/PE risk factors, who is low risk by Wells criteria for pulmonary embolism, with no contraindications to systemic anticoagulation by history, who presents with concerning chest pain, and A. fib with RVR. Placed patient on color television console monitor. Treat his pain aggressively, and start diltiazem IV. Given complaint of chest pain, back pain, right lower quadrant abdominal pain, obtain CT angiogram chest to exclude aortic disease. Obtain CT scan abdomen pelvis given history of right lower quadrant pain. If no surgical findings noted on CT scans, start patient on systemic anticoagulation, and admit the patient to the hospital for rate control, and further cardiac risk stratification. Discussed this plan of care with the patient. He is agreeable to the plan of care. Reassess after completion of the aforementioned diagnostics. Care will be transferred to the oncoming ER physician to follow-up on CT scan, laboratory studies, administer anticoagulation if necessary, and admit patient to the medical service. 04/03/21 20:54 Patient still tachycardic in spite of 15 mg of diltiazem. I personally adm inistered 25 mg of diltiazem push, patient still remaining tachycardic, therefore, diltiazem drip is ordered - Consultations Consultation #1: 04/03/21 20:56 Discussed history, physical, EKG findings and clinical impression with critical care physician on-call, Dr. Can[place]oke She is in agreement with the plan of care, and placement into the intensive care unit ED Medical Decision Making - Lab Data Result diagrams: 04/03/21 19:57 04/03/21 19:57 Vital Signs 04/03/21 04/03/21 04/03/21 19:00 20:17 20:18 Temperature 98.3 F Pulse Rate 84 80 Respiratory 22 14 Rate Blood Pressure 148/91 121/71 O2 Sat by Pulse 97 Oximetry Lab Results 04/03/21 04/03/21 04/03/21 Range/Units 19:57 19:57 19:57 WBC 5.4 (4.5-11.0) K/mm3 RBC 5.70 H (3.65-5.03) M/mm3 Hgb 15.6 H (11.8-15.2) gm/dl Hct 49.2 H (35.5-45.6) % MCV 86 (84-94) fl MCH 27 L (28-32) pg MCHC 32 (32-34) % RDW 14.1 (13.2-15.2) % Plt Count 281 (140-440) K/mm3 Lymph % (Auto) 17.4 (13.4-35.0) % [place] % (Auto) 10.1 H (0.0-7.3) % Eos % (Auto) 2.5 (0.0-4.3) % Baso % (Auto) 0.5 (0.0-1.8) % Lymph # (Auto) 0.9 L (1.2-5.4) K/mm3 [place] # (Auto) 0.5 (0.0-0.8) K/mm3 Eos # (Auto) 0.1 (0.0-0.4) K/mm3 Baso # (Auto) 0.0 (0.0-0.1) K/mm3 Seg Neutrophils % 69.5 (40.0-70.0) % Seg Neutrophils # 3.8 (1.8-7.7) K/mm3 PT 12.9 (12.2-14.9) Sec. INR 0.88 (0.87-1.13) APTT 27.7 (24.2-36.6) Sec. Estimated GFR > 60 ml/min BUN/Creatinine Ratio 11 % Albumin/Globulin Ratio 1.3 % Urine Color (Yellow) Urine Turbidity (Clear) Urine pH (5.0-7.0) Ur Specific [place] (1.003-1.030) Urine Protein (Negative) mg/dL Urine Glucose (UA) (Negative) mg/dL Urine Ketones (Negative) mg/dL Urine Blood (Negative) Urine Nitrite (Negative) Urine Bilirubin (Negative) Urine Urobilinogen (<2.0) mg/dL Ur Leukocyte Esterase (Negative) Urine RBC (Auto) (0.0-6.0) /HPF 04/03/21 Range/Units Unknown WBC (4.5-11.0) K/mm3 RBC (3.65-5.03) M/mm3 Hgb (11.8-15.2) gm/dl Hct (35.5-45.6) % MCV (84-94) fl MCH (28-32) pg MCHC (32-34) % RDW (13.2-15.2) % Plt Count (140-440) K/mm3 Lymph % (Auto) (13.4-35.0) % [place] % (Auto) (0.0-7.3) % Eos % (Auto) (0.0-4.3) % Baso % (Auto) (0.0-1.8) % Lymph # (Auto) (1.2-5.4) K/mm3 [place] # (Auto) (0.0-0.8) K/mm3 Eos # (Auto) (0.0-0.4) K/mm3 Baso # (Auto) (0.0-0.1) K/mm3 Seg Neutrophils % (40.0-70.0) % Seg Neutrophils # (1.8-7.7) K/mm3 PT (12.2-14.9) Sec. INR (0.87-1.13) APTT (24.2-36.6) Sec. Estimated GFR ml/min BUN/Creatinine Ratio % Albumin/Globulin Ratio % Urine Color Straw (Yellow) Urine Turbidity Clear (Clear) Urine pH 6.0 (5.0-7.0) Ur Specific [place] 1.008 (1.003-1.030) Urine Protein 100 mg/dl (Negative) mg/dL Urine Glucose (UA) Neg (Negative) mg/dL Urine Ketones Neg (Negative) mg/dL Urine Blood Neg (Negative) Urine Nitrite Neg (Negative) Urine Bilirubin Neg (Negative) Urine Urobilinogen < 2.0 (<2.0) mg/dL Ur Leukocyte Esterase Neg (Negative) Urine RBC (Auto) < 1.0 (0.0-6.0) /HPF - EKG Data -: EKG Interpreted by Ok EKG shows normal: sinus rhythm - EKG Data 04/03/21 20:31 The EKG is interpreted at 19: 04 A. fib, rate 174 bpm. Normal axis, QTC 494 ms. Left ventricular hypertrophy/high left ventricular voltage. Abnormal EKG. Not a STEMI. - Radiology Data Radiology results: pending, report reviewed, image reviewed CHEST 2 VIEWS INDICATION / CLINICAL INFORMATION: Chest Pain. COMPARISON: None available. FINDINGS: SUPPORT DEVICES: None. HEART / MEDIASTINUM: No significant abnormality. LUNGS / PLEURA: No significant pulmonary abnormality. No significant pleural effusion. No pneumothorax. ADDITIONAL FINDINGS: No significant additional findings. IMPRESSION: 1. No acute abnormality of the chest. Signer Name: Delvis Maher MD Signed: 04/03/2021 6:57 PM Workstation Name: [id number] Critical Care Time: Yes Critical care time in (mins) excluding proc time.: 35 ED Disposition Clinical Impression: Atrial fibrillation with RVR, Acute chest pain, Acute abdominal pain in right lower quadrant, Body mass index 40.0-44.9, adult Disposition: 09 ADMITTED INPATIENT Condition: Serious Instructions: Chest Pain (ED) Heart Score - HEART Score History: Moderately suspicious EKG: Non-specific Age: < 45 Risk factors: > 3 risk factors or hx of atherosclerotic disease Troponin: < normal limit HEART Score: 4 - EKG Read Time Time EKG Completed: 19:04 EKG Read Time: 19:04 - Critical Actions Critical Actions: 4-6 pts:12-16.6% risk of adverse cardiac event. Should be admitted <GELY STILES - Last Filed: 04/04/21 00:06> ED Review of Systems ROS: Stated complaint: CHEST PAIN Other details as noted in HPI ED Course Vital Signs 04/03/21 04/03/21 04/03/21 19:00 20:17 20:18 Temperature 98.3 F Pulse Rate 84 80 Respiratory 22 14 Rate Blood Pressure 148/91 121/71 O2 Sat by Pulse 97 Oximetry 04/03/21 04/03/21 04/03/21 20:50 20:53 23:25 Temperature Pulse Rate 185 H 160 H 145 H Respiratory Rate Blood Pressure 114/76 113/67 98/60 O2 Sat by Pulse Oximetry - Consultations Consultation #2: 04/04/21 00:04 I spoke to the power line installer on-call, Dr. Patel, and they will consult on the patient. The patient was started on a Cardizem drip but is starting to have some borderline hypotension. After speaking with cardiology the patient will be switched to an amiodarone drip without bolus. ED Medical Decision Making - Lab Data Result diagrams: 04/03/21 19:57 04/03/21 19:57 - Radiology Data CTA CHEST, ABDOMEN, AND PELVIS WITH IV CONTRAST INDICATION: Acute R.L.Q. abdominal pain, chest pain, back pain. TECHNIQUE: Axial CT images were obtained through the chest, abdomen, and pelvis before and after injection of 100 cc Omnipaque 350 IV contrast. 3 plane MIP reconstructions were produced. All CT scans at this location are performed using CT dose reduction for ALARA by means of automated exposure control. COMPARISON: 2 views of the chest performed today. FINDINGS: Heart: No significant abnormality. Thoracic Aorta: No significant abnormality. Great Vessels: No significant abnormality. Coronary Arteries: No significant abnormality. Pulmonary Arteries: No significant abnormality. Additional Chest Findings: No significant abnormality. Abdominal Aorta: No significant abnormality. Renal arteries: No significant abnormality. Celiac artery: No significant abnormality. Superior Mesenteric Artery: No significant abnormality. Inferior mesenteric artery: No significant abnormality. Right Iliac Arteries: No significant abnormality.. Left Iliac Arteries: No significant abnormality.. Femoral Arteries: No significant abnormality as visualized. Additional Abdominopelvic Findings: There is hepatic steatosis without other significant abnormalities. The appendix is unremarkable. Skeletal Structures: No significant abnormality. IMPRESSION: 1. No significant abnormality of the chest, abdomen or pelvis. - Medical Decision Making This patient was signed out to me in order to follow-up on the results of the CT angiography of the chest and abdomen/pelvis, as well as get the patient admitted for this new onset atrial fibrillation with RVR. The patient had not yet been started on the Cardizem drip. I went to reevaluate the patient and he had a heart rate in between 140 to 160 bpm. Otherwise he is awake, alert, oriented, calm and appropriate. The CT scans did not show any acute process or etiology of the patient's chest or abdominal pain. Once the Cardizem drip was started, the patient began having some borderline hypotension. I spoke with cardiology on-call and they have been consulted. The patient will be switched to an amiodarone drip without bolus. Patient has been accepted for admission by the hospitalist, Dr. Carlos. Critical care attestation.: If time is entered above; I have spent that time in minutes in the direct care of this critically ill patient, excluding procedure time. ED Disposition Is pt being admited?: Yes Time of Disposition: 00:06
--- NOTE | 2021-04-03 20:02 | XRay Report ---
CHEST 2 VIEWS INDICATION / CLINICAL INFORMATION: Chest Pain. COMPARISON: None available. FINDINGS: SUPPORT DEVICES: None. HEART / MEDIASTINUM: No significant abnormality. LUNGS / PLEURA: No significant pulmonary abnormality. No significant pleural effusion. No pneumothora x. ADDITIONAL FINDINGS: No significant additional findings. IMPRESSION: 1. No acute abnormality of the chest. Signer Name: Delvis Maher MD Signed: 04/03/2021 7:57 PM Workstation Name: [id number]
[2021-04-03 20:37] LABS: Basophils % (Auto) 0.5 % (0.0-1.8); Eosinophils # (Auto) 0.1 K/mm3 (0.0-0.4); Eosinophils % (Auto) 2.5 % (0.0-4.3); Hematocrit 49.2 % (35.5-45.6); Hemoglobin 15.6 gm/dl (11.8-15.2); Lymphocytes # (Auto) 0.9 K/mm3 (1.2-5.4); Lymphocytes % (Auto) 17.4 % (13.4-35.0); Mean Corpuscular HGB Conc 32 % (32-34); Mean Corpuscular Volume 86 fl (84-94); Monocytes # (Auto) 0.5 K/mm3 (0.0-0.8); Monocytes % (Auto) 10.1 % (0.0-7.3); Platelet Count 281 K/mm3 (140-440); Red Cell Distribution Width 14.1 % (13.2-15.2)
[2021-04-03 20:39] LABS: Bilirubin,Urine NEG (Negative); Blood,Urine NEG (Negative); Color,Urine Straw (Yellow); Urobilinogen,Urine < 2.0 mg/dL (<2.0)
[2021-04-03 20:50] LABS: RBC,Urine < 1.0 /HPF (0.0-6.0); WBC,Urine < 1.0 /HPF (0.0-6.0)
[2021-04-03 20:50] LABS: INR 0.88 (0.87-1.13)
[2021-04-03 20:51] LABS: Partial Thromboplastin Time 27.7 Sec. (24.2-36.6)
[2021-04-03 20:52] LABS: Alanine Aminotransferase 71 units/L (7-56); Albumin 4.6 g/dL (3.9-5); BUN/Creatinine Ratio 11; Blood Urea Nitrogen 10 mg/dL (9-20); Calcium 9.4 mg/dL (8.4-10.2); Hemolysis Index 16
[2021-04-03] MEDS ORDERED: dilTIAZem/D5W 100 MG/100 ML BAG IV SCH (21:00)
--- NOTE | 2021-04-03 22:20 | Cat Scan Report ---
CTA CHEST, ABDOMEN, AND PELVIS WITH IV CONTRAST INDICATION: Acute R.L.Q. abdominal pain, chest pain, back pain. TECHNIQUE: Axial CT images were obtained through the chest, abdomen, and pelvis before and after injection of 10 0 cc Omnipaque 350 IV contrast. 3 plane MIP reconstructions were produced. All CT scans at this [facility] are performed using CT dose reduction for ALARA by means of automated exposure control. COMPARISON: 2 views of the chest performed today. FINDINGS: Heart: No significant abnormality. Thoracic Aorta: No significant abnormality. Great Vessels: No significant abnormality. Coronary Arteries: No significant abnormality. Pulmonary Arteries: No significant abnormality. Additional Chest Findings: No significant abnormality. Abdominal Aorta: No significant abnormality. Renal arteries: No significant abnormality. Celiac artery: No significant abnormality. Superior Mesenteric Artery: No significant abnormality. Inferior mesenteric artery: No significant abnormality. Right Iliac Arteries: No significant abnormality.. Left Iliac Arteries: No significant abnormality.. Femoral Arteries: No significant abnormality as visualized. Additional Abdominopelvic Findings: There is hepatic steatosis without other significant abnormalitie s. The appendix is unremarkable. Skeletal Structures: No significant abnormality. IMPRESSION: 1. No significant abnormality of the chest, abdomen or pelvis. Signer Name: Delvis Maher MD Signed: 04/03/2021 10:16 PM Workstation Name: [id number]
--- NOTE | 2021-04-03 22:20 | Cat Scan Report ---
CTA CHEST, ABDOMEN, AND PELVIS WITH IV CONTRAST INDICATION: Acute R.L.Q. abdominal pain, chest pain, back pain. TECHNIQUE: Axial CT images were obtained through the chest, abdomen, and pelvis before and after injection of 10 0 cc Omnipaque 350 IV contrast. 3 plane MIP reconstructions were produced. All CT scans at this [facility] are performed using CT dose reduction for ALARA by means of automated exposure control. COMPARISON: 2 views of the chest performed today. FINDINGS: Heart: No significant abnormality. Thoracic Aorta: No significant abnormality. Great Vessels: No significant abnormality. Coronary Arteries: No significant abnormality. Pulmonary Arteries: No significant abnormality. Additional Chest Findings: No significant abnormality. Abdominal Aorta: No significant abnormality. Renal arteries: No significant abnormality. Celiac artery: No significant abnormality. Superior Mesenteric Artery: No significant abnormality. Inferior mesenteric artery: No significant abnormality. Right Iliac Arteries: No significant abnormality.. Left Iliac Arteries: No significant abnormality.. Femoral Arteries: No significant abnormality as visualized. Additional Abdominopelvic Findings: There is hepatic steatosis without other significant abnormalitie s. The appendix is unremarkable. Skeletal Structures: No significant abnormality. IMPRESSION: 1. No significant abnormality of the chest, abdomen or pelvis. Signer Name: Delvis Maher MD Signed: 04/03/2021 10:16 PM Workstation Name: [id number]
[2021-04-03] MEDS ORDERED: SODIUM CHLORIDE 0.9% 1000 ML 1,000 ML IV ONE (23:36)
[2021-04-04] MEDS: AMIODARONE 360 MG in DEXTROSE 5% IN WATER 192.8 ML IV SCH ×2 (00:25→06:51)
[2021-04-04] MEDS ORDERED: MORPHINE 2 MG/1 ML INJ IV PRN (01:23)
[2021-04-04] MEDS ORDERED: traMADol 50 MG TAB PO PRN (01:23)
[2021-04-04] MEDS ORDERED: MAGNESIUM HYDROXIDE (MOM) ORAL LIQD UDC PO PRN (01:23)
[2021-04-04] MEDS ORDERED: MORPHINE 4 MG/1 ML INJ IV PRN ×2 (01:23)
[2021-04-04] MEDS ORDERED: ACETAMINOPHEN 325 MG TAB PO PRN ×2 (01:23)
[2021-04-04 04:02] LABS: BUN/Creatinine Ratio 10; Blood Urea Nitrogen 11 mg/dL (9-20); Calcium 8.6 mg/dL (8.4-10.2); Hemolysis Index 4
[2021-04-04] MEDS ORDERED: METOPROLOL TARTRATE 5 MG/5 ML INJ IV ONE (05:36)
--- NOTE | 2021-04-04 07:54 | History and Physical Report ---
History of Present Illness Date of examination: 04/04/21 Date of admission: 04/04/21 01:23 Chief complaint: Chest pain History of present illness: 35-year-old -[place] male with known history of hypertension presents to the emergency room today complaining of chest pain. Pain is said to be left- sided and radiated towards the left upper extremity. No no relieving or exacerbating factor. He had associated shortness of breath. He denies any headache or dizziness or diaphoresis. Patient denies any fever or chills, no nausea or vomiting and no diarrhea. Upon arrival in the emergency room patient was found to be in a A. fib with RVR. Work-up in the emergency room today, CT angiogram of the chest shows no acute abnormalities. CT abdomen and pelvis was also unremarkable. Past History Past Medical History: hypertension, seizures, other (Obstructive sleep apnea, morbid obesity) Past Surgical History: cholecystectomy, Other (Rectal ulcer anterior with corrective surgery) Social history: no significant social history Family history: no significant family history Medications and Allergies Allergies Allergy/AdvReac Type Severity Reaction Status Date / Time No Known Allergies Allergy Verified 04/03/21 20:58 Home Medications Medication Instructions Recorded Confirmed Last Taken Type HYDROcodone/APAP 5-325 [[place] 1 each PO Q4HR PRN #15 tablet 09/02/17 Unknown Rx 5/325] Butalb/Acetamin/Caff 50-325-40 2 tab PO Q8HR PRN #20 tablet 07/28/18 Unknown Rx [Fioricet] Eslicarbazepine Acetate [Aptiom] 400 mg PO QDAY #60 tablet 07/28/18 Unknown Rx Lacosamide [Vimpat] 100 mg PO Q12HR #60 tablet 07/28/18 Unknown Rx Famotidine [Pepcid] 20 mg PO BID #20 tablet 02/26/21 Unknown Rx HYDROcodone/APAP 5-325 [[place] 1 - 2 each PO Q6HR PRN #10 tablet 02/26/21 Unknown Rx 5/325] Promethazine [Phenergan] 25 mg PO Q6HR PRN #20 tab 02/26/21 Unknown Rx Promethazine [Phenergan] 25 mg [place] Q6HR PRN #5 supp.rect 02/26/21 Unknown Rx Active Meds: Active Medications Acetaminophen (Acetaminophen 325 Mg Tab) 650 mg PO Q6H PRN PRN Reason: Pain MILD(1-3)/Fever >100.5/[place] Aspirin (Aspirin Ec 325 Mg Tab) 325 mg PO QDAY [facility] Amiodarone HCl 360 mg/ (Dextrose) 200 mls @ 33.333 mls/hr IV DIRECT [facility]; Protocol Last Admin: 04/04/21 06:51 Dose: 0.5 mg/min, 16.66 mls/hr Magnesium Hydroxide (Magnesium Hydroxide (Mom) Oral Liqd Udc) 30 ml PO Q4H PRN PRN Reason: Constipation Morphine Sulfate (Morphine 2 Mg/1 Ml Inj) 2 mg IV Q4H PRN PRN Reason: Pain, Moderate (4-6) Morphine Sulfate (Morphine 4 Mg/1 Ml Inj) 4 mg IV Q4H PRN PRN Reason: Pain , Severe (7-10) Morphine Sulfate (Morphine 4 Mg/1 Ml Inj) 2 mg IV Q5MIN PRN PRN Reason: Chest Pain unrelieved by NTG Sodium Chloride (Sodium Chloride 0.9% 10 Ml Flush Syringe) 10 ml IV BID [facility] Stop: 04/11/21 09:59 Sodium Chloride (Sodium Chloride 0.9% 10 Ml Flush Syringe) 10 ml IV PRN PRN PRN Reason: LINE FLUSH Sodium Chloride (Sodium Chloride 0.9% 10 Ml Flush Syringe) 10 ml IV PRN PRN PRN Reason: LINE FLUSH Tramadol HCl (Tramadol 50 Mg Tab) 50 mg PO Q6H PRN PRN Reason: Pain, Moderate (4-6) Review of Systems Constitutional: no fever, no chills Ears, nose, mouth and throat: no nasal congestion, no sore throat Cardiovascular: chest pain, no orthopnea, no palpitations Respiratory: no cough, no shortness of breath Gastrointestinal: no abdominal pain, no nausea, no vomiting, no diarrhea Genitourinary Male: no dysuria, no hematuria, no flank pain, no nocturia Musculoskeletal: no neck pain, no low back pain Integumentary: no rash, no pruritis Neurological: no headaches, no confusion Psychiatric: no anxiety, no depression Endocrine: no polyphagia, no polydipsia, no polyuria, no nocturia Exam - Constitutional Vitals: Temp Pulse Resp BP Pulse Ox 98.3 F 89 20 119/62 94 04/03/21 19:00 04/04/21 07:00 04/04/21 07:00 04/04/21 07:00 04/04/21 07:00 General appearance: Present: no acute distress, well-nourished, obese - EENT Eyes: Present: PERRL, EOM intact. Absent: scleral icterus ENT: hearing intact, clear oral mucosa, dentition normal - Neck Neck: Present: supple, normal ROM - Respiratory Respiratory effort: normal Respiratory: bilateral: CTA - Cardiovascular Rhythm: irregularly irregular Heart Sounds: Present: S1 & S2. Absent: gallop, systolic murmur, diastolic murmur, rub, click - Extremities Extremities: no ischemia, pulses intact, pulses symmetrical, No edema, normal temperature, normal color, Full ROM Peripheral Pulses: within normal limits - Abdominal General gastrointestinal: Present: soft, non-tender, non-distended, normal bowel sounds. Absent: mass - Integumentary Integumentary: Present: clear, warm, dry. Absent: rash - Musculoskeletal Musculoskeletal: strength equal bilaterally - Psychiatric Psychiatric: appropriate mood/affect, intact judgment & insight, memory intact, cooperative - Neurologic Neurologic: CNII-XII intact, no focal deficits, moves all extremities HEART Score - HEART Score EKG: Non-specific Age: < 45 Risk factors: > 3 risk factors or hx of atherosclerotic disease Troponin: Troponin T 0.018 ng/mL (0.00-0.029) 04/03/21 19:57 Troponin: < normal limit - Critical Actions Critical Actions: 4-6 pts:12-16.6% risk of adverse cardiac event. Should be admitted Results - Labs CBC & Chem 7: 04/03/21 19:57 04/04/21 02:52 Labs: Abnormal lab results 04/03/21 04/03/21 04/03/21 Range/Units 19:57 19:57 19:57 RBC 5.70 H (3.65-5.03) M/mm3 Hgb 15.6 H (11.8-15.2) gm/dl Hct 49.2 H (35.5-45.6) % MCH 27 L (28-32) pg [place] % (Auto) 10.1 H (0.0-7.3) % Lymph # (Auto) 0.9 L (1.2-5.4) K/mm3 Chloride 97.8 L (98-107) mmol/L Glucose 155 H (75-100) mg/dL ALT 71 H (7-56) units/L Total Creatine Kinase 281 H (55-170) units/L 04/04/21 Range/Units 02:52 RBC (3.65-5.03) M/mm3 Hgb (11.8-15.2) gm/dl Hct (35.5-45.6) % MCH (28-32) pg [place] % (Auto) (0.0-7.3) % Lymph # (Auto) (1.2-5.4) K/mm3 Chloride (98-107) mmol/L Glucose 176 H (75-100) mg/dL ALT (7-56) units/L Total Creatine Kinase (55-170) units/L Assessment and Plan - Patient Problems (1) Acute chest pain Current Visit: Yes Status: Acute Plan to address problem: Possibly secondary to the atrial fibrillation with RVR. However we will check serial cardiac enzymes. Will await further evaluation by cardiology. We will schedule patient for echocardiogram. (2) Atrial fibrillation with RVR Current Visit: Yes Status: Acute Plan to address problem: New onset. Patient started on amiodarone drip. Consult placed to cardiology for evaluation. (3) Body mass index 40.0-44.9, adult Current Visit: Yes Status: Acute Plan to address problem: Lifestyle modification encouraged. Dietary consult requested. (4) Hypertension Current Visit: Yes Status: Acute Plan to address problem: We will resume routine home medications and monitor vital signs closely. (5) DVT prophylaxis Current Visit: Yes Status: Acute Plan to address problem: Patient placed on anticoagulation with heparin. (6) Full code status Current Visit: Yes Status: Acute Plan to address problem: Patient is full code.
--- NOTE | 2021-04-04 12:55 | Consultation ---
History of Present Illness Consult date: 04/04/21 Requesting physician: LUANA PRECIADO Reason for consult: obstructive sleep apnea, other (Afib with RVR, morbid obesity) History of present illness: 35-year-old -[place] male with known history of hypertension presents to the emergency room today complaining of chest pain. Pain is said to be left- sided and radiated towards the left upper extremity. No no relieving or exacerbating factor. He had associated shortness of breath. He denies any headache or dizziness or diaphoresis. Patient denies any fever or chills, no nausea or vomiting and no diarrhea. Upon arrival in the emergency room patient was found to be in a A. fib with RVR. Work-up in the emergency room today, CT angiogram of the chest shows no acute abnormalities. CT abdomen and pelvis was also unremarkable. A critical care consult was placed to facilitate admission for management of critical drips. Patient seen and examined. Vitals, albs, medications, chart reviewed. he is resting peacefully in bed. Currently on an amiodarone infusion and he remains in Afib but with a controlled ventricular response. he does have a history of sleep apnea and states he is compliant with CPAP. He denies any chest pain, no shortness of breath. No fevers, no chills, no nausea or vomiting. Review of Systems Constitutional: denies: fever Eyes: denies: vision change ENT: denies: epistaxis Respiratory: shortness of breath. denies: cough Cardiovascular: chest pain, palpitations Gastrointestinal: abdominal pain. denies: vomiting, melena, hematochezia Genitourinary: denies: dysuria, testicular pain Musculoskeletal: back pain Neurological: paresthesias Psychiatric: anxiety Hematological/Lymphatic: denies: easy bleeding Past Medical History Hx Hypertension: Yes (Controlled with meds) Hx Seizures: Yes (Out of Meds) Surgical History Additional Surgical History: Gallbladder surgery, Rectal ulcer & tear corrective surgery Social History Smoking Status: Never Smoker Substance Use Type: None (Denies illicit drug use), Alcohol (Rarely) Past History Past Medical History: hypertension, seizures, other (Obstructive sleep apnea, morbid obesity) Past Surgical History: cholecystectomy, Other (Rectal ulcer anterior with corrective surgery) Social history: no significant social history Family history: no significant family history Medications and Allergies Allergies Allergy/AdvReac Type Severity Reaction Status Date / Time No Known Allergies Allergy Verified 04/03/21 20:58 Home Medications Medication Instructions Recorded Confirmed Last Taken Type Lacosamide [Vimpat] 100 mg PO Q12HR #60 tablet 07/28/18 Unknown Rx Famotidine [Pepcid] 20 mg PO BID #20 tablet 02/26/21 Unknown Rx Promethazine [Phenergan] 25 mg PO Q6HR PRN #20 tab 02/26/21 Unknown Rx Promethazine [Phenergan] 25 mg [place] Q6HR PRN #5 supp.rect 02/26/21 Unknown Rx Eslicarbazepine Acetate [Aptiom] 400 mg PO QWEEK 04/05/21 04/05/21 03/31/21 07:00 History amLODIPine [Norvasc] 5 mg PO DAILY 04/05/21 04/05/21 04/04/21 07:00 History cloNIDine [Catapres] 0.1 PO DAILY 04/05/21 04/04/21 07:00 History hydroCHLOROthiazide [HCTZ] 25 mg PO QDAY 04/05/21 04/05/21 04/04/21 07:00 History Active Meds: Active Medications Acetaminophen (Acetaminophen 325 Mg Tab) 650 mg PO Q6H PRN PRN Reason: Pain MILD(1-3)/Fever >100.5/[place] Last Admin: 04/04/21 11:00 Dose: 650 mg Apixaban (Apixaban 5 Mg Tab) 5 mg PO Q12HR [facility]; Protocol Diltiazem HCl (Diltiazem 30 Mg Tab) 30 mg PO Q8HR [facility] Magnesium Hydroxide (Magnesium Hydroxide (Mom) Oral Liqd Udc) 30 ml PO Q4H PRN PRN Reason: Constipation Morphine Sulfate (Morphine 2 Mg/1 Ml Inj) 2 mg IV Q4H PRN PRN Reason: Pain, Moderate (4-6) Morphine Sulfate (Morphine 4 Mg/1 Ml Inj) 4 mg IV Q4H PRN PRN Reason: Pain , Severe (7-10) Morphine Sulfate (Morphine 4 Mg/1 Ml Inj) 2 mg IV Q5MIN PRN PRN Reason: Chest Pain unrelieved by NTG Sodium Chloride (Sodium Chloride 0.9% 10 Ml Flush Syringe) 10 ml IV BID [facility] Stop: 04/11/21 09:59 Last Admin: 04/04/21 10:53 Dose: 10 ml Sodium Chloride (Sodium Chloride 0.9% 10 Ml Flush Syringe) 10 ml IV PRN PRN PRN Reason: LINE FLUSH Sodium Chloride (Sodium Chloride 0.9% 10 Ml Flush Syringe) 10 ml IV PRN PRN PRN Reason: LINE FLUSH Tramadol HCl (Tramadol 50 Mg Tab) 50 mg PO Q6H PRN PRN Reason: Pain, Moderate (4-6) Physical Examination Vital signs: Vital Signs Temp Pulse Resp BP Pulse Ox 98.3 F 84 22 148/91 97 04/03/21 19:00 04/03/21 19:00 04/03/21 19:00 04/03/21 19:00 04/03/21 19:00 General appearance: no acute distress, other (obese, short neck and large neck circumference) Eyes: non-icteric ENT: oropharynx moist Neck: supple, no lymphadenopathy Effort: normal Ascultation: Bilateral: clear, diminished breath sounds Cardiovascular: irregular rhythm, other (S1,S2) Gastrointestinal: normoactive bowel sounds, soft, non-tender, non-distended Integumentary: normal Extremities: no cyanosis, pulses normal normal mental status, non-focal exam, pupils equal and round, CN II-XII normal, motor strength normal and mood appropriate, affect normal Results - Laboratory Findings CBC and BMP: 04/04/21 17:40 04/04/21 17:40 PT/INR, D-dimer PT 12.9 Sec. (12.2-14.9) 04/03/21 19:57 INR 0.88 (0.87-1.13) 04/03/21 19:57 Abnormal lab findings: Abnormal Labs 04/03/21 04/03/21 04/03/21 19:57 19:57 19:57 RBC 5.70 H Hgb 15.6 H Hct 49.2 H MCH 27 L [place] % (Auto) 10.1 H Lymph # (Auto) 0.9 L Chloride 97.8 L Glucose 155 H ALT 71 H Total Creatine Kinase 281 H 04/04/21 02:52 RBC Hgb Hct MCH [place] % (Auto) Lymph # (Auto) Chloride Glucose 176 H ALT Total Creatine Kinase - Diagnostic Findings Chest x-ray: image reviewed (No acute pulmoanry infiltrates) CT scan - chest: report reviewed (No pulmoanry embolism) Assessment and Plan Chest pain Atrial fibrillation with RVR Morbid obesity BMI 44.6 Sleep apnea Hypertension -Serial EKGs and troponins -Continue with amiodarone, can switch to oral therapies -In the setting of atrial fibrillation, needs risk assessment and a decision on anticoagulation discussed prior to discharge planning -Therapeutic Enoxaparin fro Atrial fibrillation -Continue with CPAP at night- compliance encouraged -Weight loss, life style modification -Chronic home medication. Once he is off the amiodarone infusion and the ventricular response remains<100, can transfer to telemetry -Get transthoracic echocardiogram to evaluate the LVEF and for pulmonary HTN
[2021-04-04] MEDS: APIXABAN 5 MG TAB PO SCH ×2 (13:06→22:22)
[2021-04-04] MEDS: dilTIAZem 30 MG TAB PO SCH ×2 (14:06→22:22)
[2021-04-04] MEDS ORDERED: SODIUM CHLORIDE 0.9% 1000 ML 1,000 ML ONE (14:44)
--- NOTE | 2021-04-04 15:27 | Consultation ---
History of Present Illness Consult date: 04/04/21 Requesting physician: GELY STILES Consult reason: atrial fibrillation History of present illness: Patient is a 35-year-old male with a known past medical history of hypertension and seizure disorder who reported to the ED with a complaint of chest pain that radiated to left upper extremity and shoulder blades x1 day. Patient reports that he woke from his sleep the night prior to admission suddenly with a sharp chest pain that radiated to his shoulder blades and left extremity. Patient woke up felt his heart pounding and felt short of breath. Patient denies nausea, vomiting, diaphoresis, lightheadedness, or tightness in chest. Patient denies any exacerbating factors. Patient was transported to ED and and found to be in A. fib with RVR. Patient was started on amiodarone and converted to sinus rhythm. Patient reports relief once heart rate was controlled with amiodarone. Patient is previously known to our practice. Cardiology is consulted for A. fib with RVR. Past History Past Medical History: hypertension, seizures, other (Obstructive sleep apnea, morbid obesity) Past Surgical History: cholecystectomy, Other (Rectal ulcer anterior with corrective surgery) Social history: no significant social history Family history: no significant family history Medications and Allergies Allergies Allergy/AdvReac Type Severity Reaction Status Date / Time No Known Allergies Allergy Verified 04/03/21 20:58 Home Medications Medication Instructions Recorded Confirmed Last Taken Type HYDROcodone/APAP 5-325 [[place] 1 each PO Q4HR PRN #15 tablet 09/02/17 Unknown Rx 5/325] Butalb/Acetamin/Caff 50-325-40 2 tab PO Q8HR PRN #20 tablet 07/28/18 Unknown Rx [Fioricet] Eslicarbazepine Acetate [Aptiom] 400 mg PO QDAY #60 tablet 07/28/18 Unknown Rx Lacosamide [Vimpat] 100 mg PO Q12HR #60 tablet 07/28/18 Unknown Rx Famotidine [Pepcid] 20 mg PO BID #20 tablet 02/26/21 Unknown Rx HYDROcodone/APAP 5-325 [[place] 1 - 2 each PO Q6HR PRN #10 tablet 02/26/21 Unknown Rx 5/325] Promethazine [Phenergan] 25 mg PO Q6HR PRN #20 tab 02/26/21 Unknown Rx Promethazine [Phenergan] 25 mg [place] Q6HR PRN #5 supp.rect 02/26/21 Unknown Rx Active Meds: Active Medications Acetaminophen (Acetaminophen 325 Mg Tab) 650 mg PO Q6H PRN PRN Reason: Pain MILD(1-3)/Fever >100.5/[place] Last Admin: 04/04/21 11:00 Dose: 650 mg Apixaban (Apixaban 5 Mg Tab) 5 mg PO Q12HR [facility]; Protocol Diltiazem HCl (Diltiazem 30 Mg Tab) 30 mg PO Q8HR [facility] Magnesium Hydroxide (Magnesium Hydroxide (Mom) Oral Liqd Udc) 30 ml PO Q4H PRN PRN Reason: Constipation Morphine Sulfate (Morphine 2 Mg/1 Ml Inj) 2 mg IV Q4H PRN PRN Reason: Pain, Moderate (4-6) Morphine Sulfate (Morphine 4 Mg/1 Ml Inj) 4 mg IV Q4H PRN PRN Reason: Pain , Severe (7-10) Morphine Sulfate (Morphine 4 Mg/1 Ml Inj) 2 mg IV Q5MIN PRN PRN Reason: Chest Pain unrelieved by NTG Sodium Chloride (Sodium Chloride 0.9% 10 Ml Flush Syringe) 10 ml IV BID [facility] Stop: 04/11/21 09:59 Last Admin: 04/04/21 10:53 Dose: 10 ml Sodium Chloride (Sodium Chloride 0.9% 10 Ml Flush Syringe) 10 ml IV PRN PRN PRN Reason: LINE FLUSH Sodium Chloride (Sodium Chloride 0.9% 10 Ml Flush Syringe) 10 ml IV PRN PRN PRN Reason: LINE FLUSH Tramadol HCl (Tramadol 50 Mg Tab) 50 mg PO Q6H PRN PRN Reason: Pain, Moderate (4-6) Review of Systems Constitutional: no weight loss, no weight gain Cardiovascular: chest pain, palpitations, rapid/irregular heart beat, shortness of breath, no lightheadedness, no dyspnea on exertion, no leg edema Respiratory: shortness of breath, no cough with sputum, no excessive sputum Gastrointestinal: no abdominal pain, no nausea, no vomiting Musculoskeletal: no neck stiffness, no neck pain Integumentary: no rash, no pruritis, no redness Neurological: no head injury, no transient paralysis Psychiatric: no anxiety, no memory loss Endocrine: no cold intolerance, no heat intolerance Hematologic/Lymphatic: no easy bruising, no easy bleeding Physical Examination Vital Signs Temp Pulse Resp BP Pulse Ox 98.3 F 84 22 148/91 97 04/03/21 19:00 04/03/21 19:00 04/03/21 19:00 04/03/21 19:00 04/03/21 19:00 General appearance: no acute distress HEENT: Positive: PERRL Neck: Positive: trachea midline Cardiac: Positive: Reg Rate and Rhythm Lungs: Positive: Normal Breath Sounds Neuro: Positive: Grossly Intact Abdomen: Positive: Soft Skin: Negative: Rash, Suspicious Lesions, Ulceration Extremities: Present: upper extr. pulses. Absent: edema Results 04/03/21 19:57 04/04/21 02:52 Cardiac Enzymes 04/03/21 Range/Units 19:57 AST 40 (5-40) units/L Coagulation 04/03/21 Range/Units 19:57 PT 12.9 (12.2-14.9) Sec. INR 0.88 (0.87-1.13) APTT 27.7 (24.2-36.6) Sec. CBC 04/03/21 Range/Units 19:57 WBC 5.4 (4.5-11.0) K/mm3 RBC 5.70 H (3.65-5.03) M/mm3 Hgb 15.6 H (11.8-15.2) gm/dl Hct 49.2 H (35.5-45.6) % Plt Count 281 (140-440) K/mm3 Lymph # (Auto) 0.9 L (1.2-5.4) K/mm3 [place] # (Auto) 0.5 (0.0-0.8) K/mm3 Eos # (Auto) 0.1 (0.0-0.4) K/mm3 Baso # (Auto) 0.0 (0.0-0.1) K/mm3 Comprehensive Metabolic Panel 04/03/21 04/04/21 Range/Units 19:57 02:52 Sodium 139 140 (137-145) mmol/L Potassium 4.4 4.0 (3.6-5.0) mmol/L Chloride 97.8 L 99.4 (98-107) mmol/L Carbon Dioxide 27 25 (22-30) mmol/L BUN 10 11 (9-20) mg/dL Creatinine 0.9 1.1 (0.8-1.3) mg/dL Glucose 155 H 176 H (75-100) mg/dL Calcium 9.4 8.6 (8.4-10.2) mg/dL AST 40 (5-40) units/L ALT 71 H (7-56) units/L Alkaline Phosphatase 72 (35-129) units/L Total Protein 8.1 (6.3-8.2) g/dL Albumin 4.6 (3.9-5) g/dL - Imaging and Cardiology Echo: pending EKG interpretations - Telemetry EKG Rhythm: Atrial Fibrillation - EKG Supraventricular dysrhythmia: atrial fibrillation Chamber hypertrophy or enlargement: left ventricular hypertro Assessment and Plan Patient is a 35-year-old male with a known past medical history of hypertension and seizure disorder who reported to the ED with a complaint of chest pain that radiated to left upper extremity and shoulder blades x1 day and found to be in new onset A. fib with RVR A. fib with RVR Hypertension Seizure disorder Obesity Echo 07/2020- Mild concentric LV hypertrophy. LV wall motion normal. Grade II (moderate) diastolic dysfunction, LVEF is 66% LA mildly dilated. RA moderately dilated. No significant valvular disease. Compared to echo of 2019 lvh has developed and diastolic dysfunction is new. Plan: EKG shows patient in A. fib with RVR with LVH no acute ischemic changes. Troponin is negative x2. Patient currently chest pain-free. AMI ruled out Repeat EKG pending Echo pending Patient currently sinus 80s on monitor. Stop amiodarone drip Initiate Cardizem 30 mg 3 times daily. Continue to monitor If patient heart rate remains controlled and remains in sinus rhythm possible discharge in a.m. Initiate Eliquis for anticoagulation Will plan for outpatient ischemic eval Patient seen in conjunction with Dr. Vallecillo who agrees with this plan of care - Patient Problems (1) Seizure disorder Current Visit: Yes Status: Acute (2) Acute chest pain Current Visit: Yes Status: Acute (3) Atrial fibrillation with RVR Current Visit: Yes Status: Acute (4) Body mass index 40.0-44.9, adult Current Visit: Yes Status: Acute (5) Hypertension Current Visit: Yes Status: Acute
--- NOTE | 2021-04-04 17:18 | Progress Note ---
Subjective Date of service: 04/04/21 Objective - Constitutional Vitals: Vital Signs - 12hr 04/04/21 04/04/21 04/04/21 06:00 06:27 07:00 Pulse Rate 105 H 145 H 89 Respiratory 20 20 Rate Blood Pressure 108/71 Blood Pressure 91/45 119/62 [Left] O2 Sat by Pulse 95 94 Oximetry 04/04/21 04/04/21 04/04/21 08:00 09:01 09:31 Pulse Rate 89 90 88 Respiratory 20 28 H 27 H Rate Blood Pressure 119/62 120/69 120/69 Blood Pressure [Left] O2 Sat by Pulse 97 96 98 Oximetry 04/04/21 04/04/21 04/04/21 10:31 11:01 11:31 Pulse Rate 91 H 95 H 88 Respiratory 25 H 26 H 22 Rate Blood Pressure 136/47 111/57 111/57 Blood Pressure [Left] O2 Sat by Pulse 92 96 94 Oximetry 04/04/21 04/04/21 04/04/21 12:01 12:31 13:01 Pulse Rate 88 90 91 H Respiratory 25 H 29 H 22 Rate Blood Pressure 98/57 98/57 107/61 Blood Pressure [Left] O2 Sat by Pulse 95 97 96 Oximetry 04/04/21 04/04/21 04/04/21 13:31 15:31 16:01 Pulse Rate 89 93 H 94 H Respiratory 26 H 27 H 30 H Rate Blood Pressure 107/61 106/44 104/54 Blood Pressure [Left] O2 Sat by Pulse 95 94 94 Oximetry General appearance: Present: no acute distress, well-nourished - EENT Eyes: PERRL, EOM intact ENT: hearing intact, clear oral mucosa Ears: bilateral: normal - Neck Neck: supple, normal ROM - Respiratory Respiratory effort: normal Respiratory: bilateral: CTA - Breasts Breasts: normal - Cardiovascular Rhythm: regular Heart Sounds: Present: S1 & S2. Absent: gallop, rub Extremities: pulses intact, No edema, normal color, Full ROM - Gastrointestinal General gastrointestinal: Present: soft, non-tender, non-distended, normal bowel sounds - Genitourinary Male genitourinary: normal - Integumentary Integumentary: clear, warm, dry - Musculoskeletal Musculoskeletal: 1, strength equal bilaterally - Neurologic Neurologic: moves all extremities - Psychiatric Psychiatric: memory intact, appropriate mood/affect, intact judgment & insight - Labs CBC & Chem 7: 04/03/21 19:57 04/04/21 02:52 Labs: Abnormal lab results 04/03/21 04/03/21 04/03/21 Range/Units 19:57 19:57 19:57 RBC 5.70 H (3.65-5.03) M/mm3 Hgb 15.6 H (11.8-15.2) gm/dl Hct 49.2 H (35.5-45.6) % MCH 27 L (28-32) pg [place] % (Auto) 10.1 H (0.0-7.3) % Lymph # (Auto) 0.9 L (1.2-5.4) K/mm3 Chloride 97.8 L (98-107) mmol/L Glucose 155 H (75-100) mg/dL ALT 71 H (7-56) units/L Total Creatine Kinase 281 H (55-170) units/L 04/04/21 Range/Units 02:52 RBC (3.65-5.03) M/mm3 Hgb (11.8-15.2) gm/dl Hct (35.5-45.6) % MCH (28-32) pg [place] % (Auto) (0.0-7.3) % Lymph # (Auto) (1.2-5.4) K/mm3 Chloride (98-107) mmol/L Glucose 176 H (75-100) mg/dL ALT (7-56) units/L Total Creatine Kinase (55-170) units/L HEART Score - HEART Score EKG: Non-specific Age: < 45 Risk factors: > 3 risk factors or hx of atherosclerotic disease Troponin: Troponin T 0.022 ng/mL (0.00-0.029) 04/04/21 07:29 Troponin: < normal limit - Critical Actions Critical Actions: 4-6 pts:12-16.6% risk of adverse cardiac event. Should be admitted
[2021-04-04 18:07] LABS: Hematocrit 44.2 % (35.5-45.6); Hemoglobin 13.9 gm/dl (11.8-15.2); Mean Corpuscular HGB Conc 32 % (32-34); Mean Corpuscular Volume 87 fl (84-94); Platelet Count 234 K/mm3 (140-440); Red Cell Distribution Width 13.8 % (13.2-15.2)
[2021-04-04 18:19] LABS: INR 1.11 (0.87-1.13)
[2021-04-04 18:20] LABS: Partial Thromboplastin Time 32.5 Sec. (24.2-36.6)
[2021-04-05] MEDS: dilTIAZem 30 MG TAB PO SCH ×2 (05:26→14:35)
--- NOTE | 2021-04-05 05:58 | Progress Note ---
Subjective Date of service: 04/05/21 Objective Vital Signs - 12hr 04/04/21 04/04/21 04/04/21 18:01 18:11 18:21 Temperature Pulse Rate 98 H 101 H 95 H Respiratory 26 H 15 23 Rate Blood Pressure 130/82 130/82 130/82 Blood Pressure [Left] O2 Sat by Pulse 91 90 93 Oximetry 04/04/21 04/04/21 04/04/21 18:31 18:41 18:51 Temperature Pulse Rate 95 H 97 H 96 H Respiratory 17 27 H 27 H Rate Blood Pressure 133/73 133/73 133/73 Blood Pressure [Left] O2 Sat by Pulse 92 92 92 Oximetry 04/04/21 04/04/21 04/04/21 19:01 19:11 19:21 Temperature Pulse Rate 97 H 93 H Respiratory 28 H 20 Rate Blood Pressure 106/73 106/73 106/73 Blood Pressure [Left] O2 Sat by Pulse 92 93 94 Oximetry 04/04/21 04/04/21 04/04/21 19:31 19:41 19:51 Temperature Pulse Rate Respiratory Rate Blood Pressure 137/77 137/77 137/77 Blood Pressure [Left] O2 Sat by Pulse 90 92 93 Oximetry 04/04/21 04/04/21 04/04/21 20:01 20:11 20:21 Temperature 97.6 F Pulse Rate 90 Respiratory 16 Rate Blood Pressure 137/68 137/68 137/68 Blood Pressure 137/68 [Left] O2 Sat by Pulse 92 92 92 Oximetry 04/04/21 04/04/21 04/04/21 20:31 21:59 22:01 Temperature Pulse Rate 83 77 Respiratory 17 8 L Rate Blood Pressure 133/71 133/71 133/71 Blood Pressure [Left] O2 Sat by Pulse 98 39 L Oximetry 04/04/21 04/05/21 04/05/21 22:22 00:09 03:43 Temperature 98.6 F 98.0 F Pulse Rate 90 100 H 97 H Respiratory 18 19 Rate Blood Pressure 137/68 150/91 152/103 Blood Pressure [Left] O2 Sat by Pulse 94 93 Oximetry 04/05/21 05:26 Temperature Pulse Rate 97 H Respiratory Rate Blood Pressure 152/103 Blood Pressure [Left] O2 Sat by Pulse Oximetry Constitutional: no acute distress, other (obese, short neck and large neck circumference) Eyes: non-icteric ENT: oropharynx moist Neck: supple, no lymphadenopathy Effort: normal Ascultation: Bilateral: clear, diminished breath sounds Cardiovascular: irregular rhythm, other (S1,S2) Gastrointestinal: normoactive bowel sounds, soft, non-tender, non-distended Integumentary: normal Extremities: no cyanosis, pulses normal Neurologic: normal mental status, non-focal exam, pupils equal and round, CN II- XII normal, motor strength normal and Psychiatric: mood appropriate, affect normal CBC and BMP: 04/04/21 17:40 04/04/21 17:40 ABG, PT/INR, D-dimer: PT/INR, D-dimer PT 15.5 Sec. (12.2-14.9) H 04/04/21 17:40 INR 1.11 (0.87-1.13) 04/04/21 17:40 Abnormal lab findings: Abnormal Labs 04/03/21 04/03/21 04/03/21 19:57 19:57 19:57 RBC 5.70 H Hgb 15.6 H Hct 49.2 H MCH 27 L [place] % (Auto) 10.1 H Lymph # (Auto) 0.9 L PT Chloride 97.8 L Glucose 155 H ALT 71 H Total Creatine Kinase 281 H 04/04/21 04/04/21 04/04/21 02:52 17:40 17:40 RBC 5.10 H Hgb Hct MCH 27 L [place] % (Auto) Lymph # (Auto) PT 15.5 H Chloride Glucose 176 H ALT Total Creatine Kinase
[2021-04-05 07:04] LABS: Basophils % (Auto) 0.5 % (0.0-1.8); Eosinophils # (Auto) 0.1 K/mm3 (0.0-0.4); Eosinophils % (Auto) 2.8 % (0.0-4.3); Hematocrit 42.5 % (35.5-45.6); Hemoglobin 13.7 gm/dl (11.8-15.2); Lymphocytes % (Auto) 19.3 % (13.4-35.0); Mean Corpuscular HGB Conc 32 % (32-34); Mean Corpuscular Volume 87 fl (84-94); Monocytes # (Auto) 0.6 K/mm3 (0.0-0.8); Monocytes % (Auto) 11.6 % (0.0-7.3); Platelet Count 203 K/mm3 (140-440); Red Cell Distribution Width 13.8 % (13.2-15.2)
[2021-04-05 07:21] LABS: BUN/Creatinine Ratio 12; Blood Urea Nitrogen 11 mg/dL (9-20); Calcium 9.2 mg/dL (8.4-10.2); Hemolysis Index 5
[2021-04-05] MEDS ORDERED: ASPIRIN EC 325 MG TAB PO SCH (10:00)
[2021-04-05] MEDS: APIXABAN 5 MG TAB PO SCH (11:42)
[2021-04-05] MEDS ORDERED: ESLICARBAZEPINE ACETATE 400 MG PO SCH (12:15)
[2021-04-05] MEDS ORDERED: LACOSAMIDE 100 MG TAB PO SCH (14:00)
[2021-04-05] MEDS ORDERED: hydroCHLOROthiazide 25 MG TAB PO SCH (14:00)
[2021-04-05] MEDS ORDERED: FAMOTIDINE 20 MG TAB PO SCH (14:00)
[2021-04-05 17:16] VITALS: BP 149/86
--- NOTE | 2021-04-05 17:16 | Progress Note ---
Assessment and Plan New Onset AF w RVR (maintaining SR) Atypical Chest Pain (resolved) Mild Tn Elevation (in the setting of tachyarrhythmia) HTN Morbid Obesity RACHEL (uses CPAP) Seizure Disorder Plan: Continue oral anticoagulation with Eliquis for CVA prophylaxis. Convert Cardizem to long-acting CD 120mg daily. Otherwise stable cardiac status. No objection to discharge. Plan for ischemic evaluation as an outpatient. Recommend follow-up with Dr. Contreras Vallecillo in 1-2 weeks ([phone]). Pt seen in conjunction with Dr. Willett, who agrees with the assessment and plan of care. - Patient Problems (1) Atrial fibrillation with RVR Current Visit: Yes Status: Acute (2) RACHEL (obstructive sleep apnea) Current Visit: Yes Status: Chronic (3) Seizure disorder Current Visit: Yes Status: Chronic Subjective Date of service: 04/05/21 Principal diagnosis: New Onset AF Interval history: States he feels great. No cardiac complaints. Remains in SR 90s to low 100s on tele. Objective Last Vital Signs Temp 98.7 F 04/05/21 07:25 Pulse 100 H 04/05/21 14:35 Resp 18 04/05/21 07:25 BP 148/90 04/05/21 14:35 Pulse Ox 90 04/05/21 07:25 - Physical Examination General: No Apparent Distress HEENT: Positive: EOMI, Normocephaly Neck: Positive: neck supple, trachea midline. Negative: JVD/HJR Cardiac: Positive: Reg Rate and Rhythm, S1/S2 Lungs: Positive: Decreased Breath Sounds Neuro: Positive: Grossly Intact Abdomen: Positive: Soft Skin: Negative: Rash Musculoskeletal: No Pain Extremities: Present: lower extr. pulses. Absent: edema - Labs and Meds Coagulation 04/04/21 Range/Units 17:40 PT 15.5 H (12.2-14.9) Sec. INR 1.11 (0.87-1.13) APTT 32.5 (24.2-36.6) Sec. CBC 04/04/21 04/05/21 Range/Units 17:40 04:52 WBC 5.0 5.2 (4.5-11.0) K/mm3 RBC 5.10 H 4.90 (3.65-5.03) M/mm3 Hgb 13.9 13.7 (11.8-15.2) gm/dl Hct 44.2 42.5 (35.5-45.6) % Plt Count 234 203 (140-440) K/mm3 Lymph # (Auto) 1.0 L (1.2-5.4) K/mm3 [place] # (Auto) 0.6 (0.0-0.8) K/mm3 Eos # (Auto) 0.1 (0.0-0.4) K/mm3 Baso # (Auto) 0.0 (0.0-0.1) K/mm3 Comprehensive Metabolic Panel 04/04/21 04/05/21 Range/Units 17:40 04:52 Sodium 137 (137-145) mmol/L Potassium 4.0 (3.6-5.0) mmol/L Chloride 96.5 L (98-107) mmol/L Carbon Dioxide 28 (22-30) mmol/L BUN 11 (9-20) mg/dL Creatinine 1.0 0.9 (0.8-1.3) mg/dL Glucose 160 H (75-100) mg/dL Calcium 9.2 (8.4-10.2) mg/dL - Imaging and Cardiology EKG: report reviewed, image reviewed Echo: report reviewed - Telemetry EKG Rhythm: Sinus Rhythm - EKG Supraventricular dysrhythmia: atrial fibrillation Chamber hypertrophy or enlargement: left ventricular hypertro
[2021-04-06] MEDS ORDERED: dilTIAZem CD 120 MG CAP PO SCH (10:00)
--- NOTE | 2021-04-10 12:49 | Electrocardiograph Report ---
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
--- NOTE | 2021-04-10 13:18 | Electrocardiograph Report ---
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
--- NOTE | 2021-04-10 13:19 | Electrocardiograph Report ---
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
== END 2021-04-05 20:12 | disposition home or self-care (01) | DRG 309 ==
LOC: ED 18:57 → CC1 04-04 01:23 → 4A 04-04 17:25
PROVIDERS: ADMIT Internal Medicine Geriatric Medicine; ATTEND Internal Medicine
DX: I48.91 Unspecified atrial fibrillation (principal); Z68.41 Body mass index [BMI] 40.0-44.9, adult; I10 Essential (primary) hypertension; Z87.891 Personal history of nicotine dependence; E66.01 Morbid (severe) obesity due to excess calories; G40.909 Epilepsy, unspecified, not intractable, without status epilepticus; R07.89 Other chest pain
CPT/HCPCS: 36415; 71046; 71275; 74174; 80048; 80053; 81001; 82550; 82565; 83735; 83880; 84443; 84484; 85025; 85027; 85610; 85730; 87641; 93005; 93010; 93306; G0378; J3490; J9280; Q0162; J0282; J2270; J2405; J7030; J7040; Q9967

== ENCOUNTER 2021-06-25 11:41 | Emergency (ER) | payer SELFPAY ==
[2021-06-25] MEDS ORDERED: dilTIAZem 25 MG/5 ML INJ IV ONE (12:04)
--- NOTE | 2021-06-25 12:06 | Emergency Department Report ---
ED Palpitations HPI - General Chief Complaint: Arrhythmia/Palpitations Stated Complaint: IRREGULAR HEART BEAT Time Seen by Provider: 06/25/21 12:01 Source: patient, old records reviewed Mode of arrival: Ambulatory Limitations: No Limitations - History of Present Illness Initial Comments: 35-year male the past medical history of A. fib with RVR admitted in here in March 2019 with first episode of A. fib with RVR, history of sleep apnea, morbid obesity, and hypertension presents to the hospital palpitations, chest tightness, shortness of breath that woke him up from sleep approximately 2 hours prior to arrival. Patient is initial EKG shows A. fib at a rate of 162 while in triage. Patient brought back to the ED emergently and placed on a monitor with rhythm that appears to be sinus at rate 95. Repeat EKG requested. Patient states that the chest tightness is improving. As per previous medical record patient was supposed to follow-up with cardiology as an outpatient for ischemic evaluation, continue anticoagulation with Eliquis, and take Cardizem long-acting CD 120 mg daily. Patient states he is not taking the prescribed medications b ecause they were not sent to his pharmacy and his first follow-up with head bucker is scheduled in 9 days. He has since followed up with his primary care doctor. His current medications include hydrochlorothiazide, amlodipine, and clonidine. Patient is also supposed to follow-up with government minister as an outpatient for obstructive sleep apnea. Patient states he has been compliant with his CPAP During March 2021 work-up patient had an echocardiogram showing mild diastolic dysfunction with EF 55 to 60% and a negative CT angiogram chest abdomen and pelvis - Related Data Previous Rx's Medication Instructions Recorded Last Taken Type Promethazine [Phenergan] 25 mg PO Q6HR PRN #20 tab 02/26/21 Unknown Rx Promethazine [Phenergan] 25 mg AR Q6HR PRN #5 supp.rect 02/26/21 Unknown Rx Eslicarbazepine Acetate [Aptiom] 400 mg PO QWEEK #13 04/05/21 Unknown Rx Famotidine [Pepcid] 20 mg PO BID #60 tablet 04/05/21 Unknown Rx Lacosamide [Vimpat] 100 mg PO Q12HR #60 tablet 04/05/21 Unknown Rx dilTIAZem CD [Cardizem CD] 120 mg PO DAILY #30 cap 04/05/21 Unknown Rx hydroCHLOROthiazide [HCTZ] 25 mg PO QDAY #30 04/05/21 Unknown Rx Apixaban [Eliquis] 5 mg PO Q12HR #60 tablet 06/25/21 Unknown Rx dilTIAZem [CarDIZEM] 30 mg PO Q6HR #90 tablet 06/25/21 Unknown Rx Allergies Allergy/AdvReac Type Severity Reaction Status Date / Time No Known Allergies Allergy Verified 04/03/21 20:58 ED Review of Systems ROS: Stated complaint: IRREGULAR HEART BEAT Other details as noted in HPI Comment: All other systems reviewed and negative ED Past Medical Hx - Past Medical History Hx Hypertension: Yes Hx Congestive Heart Failure: No Hx Diabetes: No Hx Seizures: Yes Hx Asthma: No Hx COPD: No Additional medical history: Obstructive sleep apnea, atrial fibrillation with RVR - Surgical History Additional Surgical History: Gallbladder surgery, Rectal ulcer & tear corrective surgery - Social History Smoking Status: Unknown if ever smoked - Medications Home Medications: Home Medications Medication Instructions Recorded Confirmed Last Taken Type Promethazine [Phenergan] 25 mg PO Q6HR PRN #20 tab 02/26/21 Unknown Rx Promethazine [Phenergan] 25 mg AR Q6HR PRN #5 supp.rect 02/26/21 Unknown Rx Eslicarbazepine Acetate [Aptiom] 400 mg PO QWEEK #13 04/05/21 Unknown Rx Famotidine [Pepcid] 20 mg PO BID #60 tablet 04/05/21 Unknown Rx Lacosamide [Vimpat] 100 mg PO Q12HR #60 tablet 04/05/21 Unknown Rx dilTIAZem CD [Cardizem CD] 120 mg PO DAILY #30 cap 04/05/21 Unknown Rx hydroCHLOROthiazide [HCTZ] 25 mg PO QDAY #30 04/05/21 Unknown Rx Apixaban [Eliquis] 5 mg PO Q12HR #60 tablet 06/25/21 Unknown Rx dilTIAZem [CarDIZEM] 30 mg PO Q6HR #90 tablet 06/25/21 Unknown Rx ED Physical Exam - General Limitations: No Limitations - Other Other exam information: General: No acute distress Head: Atraumatic Eyes: normal appearance ENT: Moist mucous membranes Neck: Normal appearance, no midline tenderness Chest: Clear to auscultation bilaterally CV: Regular rate and rhythm Abdomen: Soft, normal bowel sounds, nontender, nondistended, no rebound or guarding Back: Normal inspection Extremity: Normal inspection, full range of motion, no calf tenderness or leg edema Neuro: Alert O x 3, no facial asymmetry, speech clear, no gross motor sensory deficit Psych: Appropriate behavior Skin: No rash, no diaphoresis ED Course Vital Signs 06/25/21 06/25/21 06/25/21 11:53 12:08 12:15 Temperature 97.9 F Pulse Rate 78 101 H Respiratory 20 27 H Rate Blood Pressure 123/86 146/82 O2 Sat by Pulse 93 95 95 Oximetry 06/25/21 06/25/21 06/25/21 12:31 12:45 13:01 Temperature Pulse Rate 95 H 91 H 81 Respiratory 32 H 29 H 35 H Rate Blood Pressure 128/76 128/76 120/79 O2 Sat by Pulse 96 98 96 Oximetry 06/25/21 06/25/21 06/25/21 13:15 13:31 13:45 Temperature Pulse Rate 88 92 H 81 Respiratory 29 H 32 H 30 H Rate Blood Pressure 120/79 130/71 130/71 O2 Sat by Pulse 97 97 96 Oximetry 06/25/21 14:01 Temperature Pulse Rate 82 Respiratory 32 H Rate Blood Pressure 112/70 O2 Sat by Pulse 95 Oximetry - Reevaluation(s) Reevaluation #1: 06/25/21 15:56 respiratory rate 20, pt desats with sleeping with is chronic due to sleep apnea. - Consultations Consultation #1: 06/25/21 13:49 case d/w Jonathan with [facility], they will come to evaluate patient. 06/25/21 14:32 Cardiology evaluated patient. Recommend Lovenox x1, Cardizem 30 mg and discharged on Eliquis 5 mg twice daily and Cardizem 30 mg 3 times daily and follow-up as scheduled next week ED Medical Decision Making - Lab Data Result diagrams: 06/25/21 12:04 06/25/21 12:04 Lab Results 06/25/21 06/25/21 06/25/21 Range/Units 12:04 12:04 12:05 WBC 4.8 (4.5-11.0) K/mm3 RBC 5.01 (3.65-5.03) M/mm3 Hgb 14.3 (11.8-15.2) gm/dl Hct 43.7 (35.5-45.6) % MCV 87 (84-94) fl MCH 29 (28-32) pg MCHC 33 (32-34) % RDW 14.2 (13.2-15.2) % Plt Count 197 (140-440) K/mm3 Lymph % (Auto) 12.1 L (13.4-35.0) % [place] % (Auto) 6.3 (0.0-7.3) % Eos % (Auto) 1.5 (0.0-4.3) % Baso % (Auto) 2.7 H (0.0-1.8) % Lymph # (Auto) 0.6 L (1.2-5.4) K/mm3 [place] # (Auto) 0.3 (0.0-0.8) K/mm3 Eos # (Auto) 0.1 (0.0-0.4) K/mm3 Baso # (Auto) 0.1 (0.0-0.1) K/mm3 Seg Neutrophils % 77.4 H (40.0-70.0) % Seg Neutrophils # 3.7 (1.8-7.7) K/mm3 PT 13.9 (12.2-14.9) Sec. INR 0.97 (0.87-1.13) APTT 25.8 (24.2-36.6) Sec. Sodium 139 (137-145) mmol/L Potassium 4.2 (3.6-5.0) mmol/L Chloride 101.5 (98-107) mmol/L Carbon Dioxide 22 (22-30) mmol/L Anion Gap 20 mmol/L BUN 9 (9-20) mg/dL Creatinine 0.8 (0.8-1.3) mg/dL Estimated GFR > 60 ml/min BUN/Creatinine Ratio 11 % Glucose 216 H (75-100) mg/dL Calcium 9.1 (8.4-10.2) mg/dL Magnesium 2.00 (1.7-2.3) mg/dL Total Bilirubin 0.60 (0.1-1.2) mg/dL AST 41 H (5-40) units/L ALT 66 H (7-56) units/L Alkaline Phosphatase 66 (35-129) units/L Troponin T < 0.010 (0.00-0.029) ng/mL Total Protein 6.6 (6.3-8.2) g/dL Albumin 4.2 (3.9-5) g/dL Albumin/Globulin Ratio 1.8 % TSH (0.270-4.200) mlU/mL 06/25/21 Range/Units Unknown WBC (4.5-11.0) K/mm3 RBC (3.65-5.03) M/mm3 Hgb (11.8-15.2) gm/dl Hct (35.5-45.6) % MCV (84-94) fl MCH (28-32) pg MCHC (32-34) % RDW (13.2-15.2) % Plt Count (140-440) K/mm3 Lymph % (Auto) (13.4-35.0) % [place] % (Auto) (0.0-7.3) % Eos % (Auto) (0.0-4.3) % Baso % (Auto) (0.0-1.8) % Lymph # (Auto) (1.2-5.4) K/mm3 [place] # (Auto) (0.0-0.8) K/mm3 Eos # (Auto) (0.0-0.4) K/mm3 Baso # (Auto) (0.0-0.1) K/mm3 Seg Neutrophils % (40.0-70.0) % Seg Neutrophils # (1.8-7.7) K/mm3 PT (12.2-14.9) Sec. INR (0.87-1.13) APTT (24.2-36.6) Sec. Sodium (137-145) mmol/L Potassium (3.6-5.0) mmol/L Chloride (98-107) mmol/L Carbon Dioxide (22-30) mmol/L Anion Gap mmol/L BUN (9-20) mg/dL Creatinine (0.8-1.3) mg/dL Estimated GFR ml/min BUN/Creatinine Ratio % Glucose (75-100) mg/dL Calcium (8.4-10.2) mg/dL Magnesium (1.7-2.3) mg/dL Total Bilirubin (0.1-1.2) mg/dL AST (5-40) units/L ALT (7-56) units/L Alkaline Phosphatase (35-129) units/L Troponin T (0.00-0.029) ng/mL Total Protein (6.3-8.2) g/dL Albumin (3.9-5) g/dL Albumin/Globulin Ratio % TSH 2.400 (0.270-4.200) mlU/mL - EKG Data -: EKG Interpreted by Me (Atrial fibrillation RVR) EKG shows normal: ST-T waves (No ST elevation [place]) Rate: tachycardia (162) - EKG Data When compared to previous EKG there are: no significant change 06/25/21 Repeat EKG performed at 12:15 shows sinus rhythm rate 97. No ST elevation [place] - Radiology Data Radiology results: report reviewed CHEST 1 VIEW INDICATION / CLINICAL INFORMATION: Short of breath, palpitations. COMPARISON: 04/03/2021 FINDINGS: SUPPORT DEVICES: None. HEART / MEDIASTINUM: Stable cardiomegaly LUNGS / PLEURA: No significant pulmonary or pleural abnormality. No pneumothorax. ADDITIONAL FINDINGS: No significant additional findings. IMPRESSION: 1. Stable cardiomegaly without CHF Critical Care Time: No Critical care attestation.: If time is entered above; I have spent that time in minutes in the direct care of this critically ill patient, excluding procedure time. ED Disposition Clinical Impression: Paroxysmal atrial fibrillation with rapid ventricular response, Noncompliance with medication regimen Disposition: 01 HOME / SELF CARE / HOMELESS Is pt being admited?: No Does the pt Need Aspirin: No Condition: Stable Instructions: Atrial Fibrillation, Preventing Atrial Fibrillation-Related Stroke Additional Instructions: Take the medication as prescribed. Follow-up with your doctor or doctor/clinic provided. Return if symptoms worsen as indicated by your discharge instructions. Prescriptions: dilTIAZem [CarDIZEM] 30 mg PO Q6HR #90 tablet Apixaban [Eliquis] 5 mg PO Q12HR #60 tablet Referrals: ILYA JOHNSON MD [Staff Physician] - 7-10 days
--- NOTE | 2021-06-25 12:44 | XRay Report ---
CHEST 1 VIEW INDICATION / CLINICAL INFORMATION: Short of breath, palpitations. COMPARISON: 04/03/2021 FINDINGS: SUPPORT DEVICES: None. HEART / MEDIASTINUM: Stable cardiomegaly LUNGS / PLEURA: No significant pulmonary or pleural abnormality. No pneumothorax. ADDITIONAL FINDINGS: No significant additional findings. IMPRESSION: 1. Stable cardiomegaly without CHF Signer Name: Mario Fall MD Signed: 06/25/2021 12:40 PM Workstation Name: [id number]
[2021-06-25] MEDS ORDERED: dilTIAZem/D5W 100 MG/100 ML BAG IV SCH (13:00)
[2021-06-25 13:09] LABS: Basophils # (Auto) 0.1 K/mm3 (0.0-0.1); Basophils % (Auto) 2.7 % (0.0-1.8); Eosinophils # (Auto) 0.1 K/mm3 (0.0-0.4); Eosinophils % (Auto) 1.5 % (0.0-4.3); Hematocrit 43.7 % (35.5-45.6); Hemoglobin 14.3 gm/dl (11.8-15.2); Lymphocytes # (Auto) 0.6 K/mm3 (1.2-5.4); Lymphocytes % (Auto) 12.1 % (13.4-35.0); Mean Corpuscular HGB Conc 33 % (32-34); Mean Corpuscular Volume 87 fl (84-94); Monocytes # (Auto) 0.3 K/mm3 (0.0-0.8); Monocytes % (Auto) 6.3 % (0.0-7.3); Platelet Count 197 K/mm3 (140-440); Red Blood Count 5.01 M/mm3 (3.65-5.03); Red Cell Distribution Width 14.2 % (13.2-15.2)
[2021-06-25 13:22] LABS: Alanine Aminotransferase 66 units/L (7-56); Albumin 4.2 g/dL (3.9-5); BUN/Creatinine Ratio 11; Blood Urea Nitrogen 9 mg/dL (9-20); Calcium 9.1 mg/dL (8.4-10.2); Hemolysis Index 31
[2021-06-25 13:23] LABS: INR 0.97 (0.87-1.13); Partial Thromboplastin Time 25.8 Sec. (24.2-36.6)
[2021-06-25] MEDS ORDERED: dilTIAZem 30 MG TAB PO ONE (14:30)
[2021-06-25] MEDS ORDERED: ENOXAPARIN 100 MG/1 ML INJ SUB-Q ONE (14:30)
--- NOTE | 2021-06-25 15:42 | Consultation ---
History of Present Illness Consult date: 06/25/21 Requesting physician: FARRUKH BELTRAN Consult reason: atrial fibrillation History of present illness: Patient is a 35-year-old male with a known past medical history of Afib, RACHEL, hypertension, and seizure disorder who reported to the ED with a complaint of palpitations, shortness of breath, and some chest tightness which woke him from sleep approximately 2 hours prior to arrival in the ED. EKG showed patient to be in A. fib with RVR with a rate into the 160s. Per conversation with staff once patient was brought back into the ED and attached to potline monitor patient spontaneously converted to sinus rhythm in the 90s. Patient reported that once he converted back to sinus rhythm his symptoms stopped. Of note patient was previously seen in March for similar complaints. Patient was discharged on Cardizem and Eliquis however patient reports that he did not take his medications. He states that his pharmacy never received the medications and therefore he never began taking them. At time of interview patient denies any complaints of chest pain, nausea, vomiting, diaphoresis, palpitations, lightheadedness, or dizziness. Patient was previously seen by our practice during admission in March for A. fib with RVR. Cardiology was consulted for A. fib with RVR. Past History Past Medical History: atrial fib, hypertension, other (RACHEL) Past Surgical History: cholecystectomy, Other (Patient reports rectal surgery) Social history: denies: smoking Family history: no significant family history Medications and Allergies Allergies Allergy/AdvReac Type Severity Reaction Status Date / Time No Known Allergies Allergy Verified 04/03/21 20:58 Home Medications Medication Instructions Recorded Confirmed Last Taken Type Promethazine [Phenergan] 25 mg PO Q6HR PRN #20 tab 02/26/21 Unknown Rx Promethazine [Phenergan] 25 mg WI Q6HR PRN #5 supp.rect 02/26/21 Unknown Rx Eslicarbazepine Acetate [Aptiom] 400 mg PO QWEEK #13 04/05/21 Unknown Rx Famotidine [Pepcid] 20 mg PO BID #60 tablet 04/05/21 Unknown Rx Lacosamide [Vimpat] 100 mg PO Q12HR #60 tablet 04/05/21 Unknown Rx dilTIAZem CD [Cardizem CD] 120 mg PO DAILY #30 cap 01/22/22 Unknown Rx hydroCHLOROthiazide [HCTZ] 25 mg PO QDAY #30 04/05/21 Unknown Rx Apixaban [Eliquis] 5 mg PO Q12HR #60 tablet 06/25/21 Unknown Rx dilTIAZem [CarDIZEM] 30 mg PO Q6HR #90 tablet 06/25/21 Unknown Rx Review of Systems Constitutional: no weight loss, no weight gain, no fever, no sweats Ears, nose, mouth and throat: no nasal discharge, no sinus pressure, no sinus pain Cardiovascular: palpitations, rapid/irregular heart beat, shortness of breath, no chest pain, no orthopnea, no lightheadedness Respiratory: shortness of breath, no cough with sputum, no excessive sputum Gastrointestinal: no abdominal pain, no nausea, no vomiting Musculoskeletal: no neck stiffness, no neck pain, no shooting arm pain Integumentary: no rash, no pruritis, no redness Neurological: no transient paralysis, no paralysis Psychiatric: no anxiety, no memory loss Endocrine: no cold intolerance, no heat intolerance Hematologic/Lymphatic: no easy bruising, no easy bleeding Physical Examination Vital Signs Temp Pulse Resp BP Pulse Ox 97.9 F 78 20 123/86 93 06/25/21 11:53 06/25/21 11:53 06/25/21 11:53 06/25/21 11:53 06/25/21 11:53 General appearance: no acute distress HEENT: Positive: PERRL Neck: Positive: trachea midline Cardiac: Positive: Reg Rate and Rhythm Lungs: Positive: Normal Breath Sounds Neuro: Positive: Grossly Intact Abdomen: Positive: Soft, Active Bowel Sounds Skin: Negative: Rash, Suspicious Lesions, Ulceration Extremities: Present: upper extr. pulses. Absent: edema Results 06/25/21 12:04 06/25/21 12:04 Cardiac Enzymes 06/25/21 Range/Units 12:04 AST 41 H (5-40) units/L Coagulation 06/25/21 Range/Units 12:05 PT 13.9 (12.2-14.9) Sec. INR 0.97 (0.87-1.13) APTT 25.8 (24.2-36.6) Sec. CBC 06/25/21 Range/Units 12:04 WBC 4.8 (4.5-11.0) K/mm3 RBC 5.01 (3.65-5.03) M/mm3 Hgb 14.3 (11.8-15.2) gm/dl Hct 43.7 (35.5-45.6) % Plt Count 197 (140-440) K/mm3 Lymph # (Auto) 0.6 L (1.2-5.4) K/mm3 [place] # (Auto) 0.3 (0.0-0.8) K/mm3 Eos # (Auto) 0.1 (0.0-0.4) K/mm3 Baso # (Auto) 0.1 (0.0-0.1) K/mm3 Comprehensive Metabolic Panel 06/25/21 Range/Units 12:04 Sodium 139 (137-145) mmol/L Potassium 4.2 (3.6-5.0) mmol/L Chloride 101.5 (98-107) mmol/L Carbon Dioxide 22 (22-30) mmol/L BUN 9 (9-20) mg/dL Creatinine 0.8 (0.8-1.3) mg/dL Glucose 216 H (75-100) mg/dL Calcium 9.1 (8.4-10.2) mg/dL AST 41 H (5-40) units/L ALT 66 H (7-56) units/L Alkaline Phosphatase 66 (35-129) units/L Total Protein 6.6 (6.3-8.2) g/dL Albumin 4.2 (3.9-5) g/dL - Imaging and Cardiology Echo: report reviewed EKG interpretations - Telemetry EKG Rhythm: Sinus Rhythm - EKG Sinus rhythms and dysrhythmias: sinus rhythm Assessment and Plan Patient is a 35-year-old male with a known past medical history of Afib,RACHEL, hyp ertension, and seizure disorder who reported to the ED with a complaint of chest pain that radiated to left upper extremity and shoulder blades x1 day and found to be in new onset A. fib with RVR A. fib with RVR Hypertension Seizure disorder Obesity Echo 04/04/2021-EF 55 to 60%. Mild concentric LVH. Mild diastolic dysfunction is present impaired fixation pattern. Right ventricle systolic function is normal Plan: EKG shows patient in A. fib with RVR rate 162 with LVH no acute ischemic changes. Troponin is negative x1. Patient currently chest pain-free and denies any cardiac complaints Repeat EKG shows patient to be in sinus rhythm rate 97 with no significant di fferences from previous EKG during admission in March Patient is currently sinus on monitor Recommend stopping outpatient clonidine and initiating Cardizem 30 mg PO 3 times daily. Initiate one-time dose of Lovenox and resume outpatient Eliquis for anticoagulation Discussed importance of medication compliance and follow-up appoint with patient. Patient verbalized understanding and acknowledgment Cardiac status otherwise stable. Patient can follow-up with our group as an outpatient Patient is scheduled for outpatient stress test on 07/07/2021 at 8:30 AM at our [facility] Patient is scheduled for Holter monitor on 07/07/2021 at 10:45 AM at [facility] Patient is scheduled for follow-up on 07/25/2021 at 9:[address] Vallecillo, [facility] marketing data specialist. Phone #[phone] Patient seen in conjunction with Dr. Vallecillo who agrees with this plan of care - Patient Problems (1) Paroxysmal atrial fibrillation with rapid ventricular response Current Visit: Yes Status: Acute (2) Body mass index 40.0-44.9, adult Current Visit: No Status: Acute (3) Hypertension Current Visit: No Status: Acute (4) RACHEL (obstructive sleep apnea) Current Visit: No Status: Chronic (5) Seizure disorder Current Visit: No Status: Chronic
[2021-06-25 16:59] VITALS: BP 142/84
--- NOTE | 2021-06-26 20:21 | Electrocardiograph Report ---
[facility] Test Date: 2021-06-25 Test Time: 11:58:57 Pat Name: TAMIR FALK Department: Room: Gender: M Shipwright Helper: JUAN JOSE : 1985 Requested By: FARRUKH BELTRAN Order Number: [id number] Reading MD: Tereza Eng Measurements Intervals [place] Rate: 162 P: [place]: QRS: 32 QRSD: 87 T: 16 QT: 280 QTc: 461 Interpretive Statements Rapid atrial fibrillation Nonspecific ST segment changes Compared to ECG 04/05/2021 10:56:08 Atrial fibrillation has replaced sinus rhythm Electronically Signed On 06-26-2021 20:21:38 EDT by Tereza Eng
--- NOTE | 2021-06-26 20:22 | Electrocardiograph Report ---
[facility] Test Date: 2021-06-25 Test Time: 12:15:00 Pat Name: TAMIR FALK Department: Room: Gender: M Transport Manager: JUAN : 1985 Requested By: FARRUKH BELTRAN Order Number: [id number] Reading MD: Tereza Eng Measurements Intervals [place] Rate: 97 P: 73 AL: 150 QRS: 25 QRSD: 90 T: 77 QT: 357 QTc: 453 Interpretive Statements Sinus rhythm Probable left atrial enlargement Compared to ECG 06/25/2021 11:58:57 Sinus rhythm has replaced atrial fibrillation Electronically Signed On 06-26-2021 20:22:19 EDT by Tereza Eng
== END 2021-06-25 17:18 | disposition home or self-care (01) ==
LOC: ED 11:41
DX: I48.20 Chronic atrial fibrillation, unspecified (principal); Z91.14 Patient's other noncompliance with medication regimen; I10 Essential (primary) hypertension; R56.9 Unspecified convulsions; Z98.890 Other specified postprocedural states; Z79.899 Other long term (current) drug therapy
CPT/HCPCS: 36415; 71045; 80053; 83735; 84443; 84484; 85025; 85610; 85730; 93005; 96372; 99284; J1650

== ENCOUNTER 2021-10-10 10:08 | Emergency (ER) | payer SELFPAY ==
[2021-10-10 10:13] VITALS: BP 203/114
--- NOTE | 2021-10-10 11:06 | XRay Report ---
Left foot 3 views INDICATION: Pain FINDINGS: MTP joints and IP joints appear normal. Midfoot alignment appears normal. Mild soft tissue swelling over the dorsal aspect of foot. Signer Name: Power Lugo MD Signed: 10/10/2021 11:02 AM Workstation Name: [id number]
--- NOTE | 2021-10-10 11:09 | XRay Report ---
CHEST 2 VIEWS INDICATION / CLINICAL INFORMATION: Dysrhythmia. COMPARISON: June 25, 2021 FINDINGS: SUPPORT DEVICES: None. HEART / MEDIASTINUM: No significant abnormality. LUNGS / PLEURA: No significant pulmonary or pleural abnormality. No pneumothorax. ADDITIONAL FINDINGS: No significant additional findings. IMPRESSION: 1. No acute findings. Signer Name: Power Lugo MD Signed: 10/10/2021 11:04 AM Workstation Name: [id number]
[2021-10-10 11:25] LABS: Basophils % (Auto) 0.4 % (0.0-1.8); Eosinophils # (Auto) 0.2 K/mm3 (0.0-0.4); Eosinophils % (Auto) 3.3 % (0.0-4.3); Hemoglobin 12.9 gm/dl (11.8-15.2); Lymphocytes # (Auto) 0.9 K/mm3 (1.2-5.4); Lymphocytes % (Auto) 18.3 % (13.4-35.0); Mean Corpuscular HGB Conc 35 % (32-34); Mean Corpuscular Volume 85 fl (84-94); Monocytes # (Auto) 0.4 K/mm3 (0.0-0.8); Monocytes % (Auto) 8.8 % (0.0-7.3); Platelet Count 187 K/mm3 (140-440); Red Blood Count 4.33 M/mm3 (3.65-5.03); Red Cell Distribution Width 14.7 % (13.2-15.2)
[2021-10-10 11:34] LABS: INR 0.97 (0.87-1.13)
[2021-10-10 11:35] LABS: Partial Thromboplastin Time 29.7 Sec. (24.2-36.6)
[2021-10-10 11:48] LABS: Creatine Kinase MB 4.5 ng/mL (0.0-4.0)
[2021-10-10 11:50] LABS: Alanine Aminotransferase 46 units/L (7-56); Albumin 4.4 g/dL (3.9-5); BUN/Creatinine Ratio 10; Blood Urea Nitrogen 8 mg/dL (9-20); Hemolysis Index 7
--- NOTE | 2021-10-11 11:12 | Electrocardiograph Report ---
[facility] Test Date: 2021-10-10 Test Time: 10:17:24 Pat Name: TAMIR FALK Department: Room: Gender: M Program Schedule Clerk: [id number] : 1985 Requested By: ED DOC Order Number: [id number] Reading MD: Efren Patel Measurements Intervals [place] Rate: 96 P: 60 FL: 183 QRS: 28 QRSD: 101 T: 86 QT: 437 QTc: 553 Interpretive Statements Sinus rhythm Borderline ST elevation, anterior leads Prolonged QT interval Compared to ECG 06/25/2021 12:15:00 Prolonged QT interval now present Electronically Signed On 10-11-2021 11:12:04 EDT by Efren Patel
== END 2021-10-12 16:28 | disposition left against medical advice (07) ==
LOC: ED 10:08
DX: R00.9 Unspecified abnormalities of heart beat (principal); Z53.21 Procedure and treatment not carried out due to patient leaving prior to being seen by health care provider
CPT/HCPCS: 36415; 71046; 80053; 82550; 82553; 84484; 85025; 85610; 85730; 93005